=== PATIENT | male | born 1955 | race Hispanic/Latino ===

== ENCOUNTER 2021-06-08 06:47 | Emergency (ER) | payer SELFPAY ==
[2021-06-08] MEDS ORDERED: MECLIZINE HCL 12.5 MG TAB ONE (07:20)
[2021-06-08 07:30] LABS: Absolute Lymphocytes (CBC) 1.3 K/uL (0.7-4.9); Hematocrit 36.1 % (39.6-49.0); Lymphocytes % 19.3 % (15.3-44.8); MPV 6.6 fL (7.6-11.3)
[2021-06-08 07:31] LABS: Protime INR 1.22
--- NOTE | 2021-06-08 07:50 | RAD REPORT ---
EXAM DESCRIPTION: CT - Ct Stroke Brain Wo Cont - 06/08/2021 7:37 am CLINICAL HISTORY: DIZZINESS COMPARISON: Head angio dated 06/08/2021 TECHNIQUE: Axial 5 millimeter thick images of the head were obtained without IV contrast. All CT scans are performed using dose optimization technique as appropriate and may include automated exposure control or mA/KV adjustment according to patient size. FINDINGS: No intracranial hemorrhage, mass, or cerebral edema. No acute infarctions seen at the myles ical level. No cortical edema or sulcal effacement. Mild underlying atrophy changes are present. Vent ricles are in proportion to any volume loss. Arterial and physiologic calcifications are present. Chr onic ischemic changes minimal. There is focal diminished attenuation in the right cerebellum likely f rom old CVA. No extra-axial fluid collections. Holley matter-white matter differentiation is preserved . Visualized portions of the mastoid air cells, paranasal sinuses, and orbits are unremarkable. Findings telephoned to Jimbo at 7:44 a.m. IMPRESSION: No CT evidence of acute intracranial process. Mild atrophy changes are present. Chronic ischemic changes minimal. 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
--- NOTE | 2021-06-08 07:56 | RAD REPORT ---
EXAM DESCRIPTION: CT - Neck Angio - 06/08/2021 7:37 am CLINICAL HISTORY: dizziness, stroke-like symptoms TECHNIQUE: During dynamic enhancement using nonionic IV contrast, axial 2 mm thick images of the nec k were obtained. Sagittal and axial reconstruction images were generated using MIP technique and revi ewed. All CT scans are performed using dose optimization technique as appropriate and may include automated exposure control or mA/KV adjustment according to patient size. COMPARISON: CT head same date FINDINGS: No aneurysm or vascular malformation identified. No carotid dissection. No right vertebra l artery dissection. No aortic arch or great vessel origin abnormality seen. No origin stenosis or significant atheroscler otic changes of the right vertebral artery. The left vertebral artery is very small in size along its entire course with segments near the origin and the C1-2 region showing no defined flow on CT imagin g. The distal-most vertebral artery has identifiable flow. No stenosis, vasculitis or other significa nt carotid artery finding. No basilar artery abnormality. Imaging in each lung apex shows lung parenchymal scarring, nodularity and calcifications probably all chronic disease but not fully evaluated on this study. IMPRESSION: Very small irregular contour to the left vertebral artery without commensurate enlargem ent of the right vertebral artery (right vertebral artery dominant variant). Atherosclerotic disease or dissection of the left vertebral artery cannot be excluded. Age of any pos sible dissection cannot be established. Correlation is needed with any symptoms that may indicate the left vertebral artery changes are acute /subacute.
--- NOTE | 2021-06-08 08:00 | RAD REPORT ---
EXAM DESCRIPTION: CT - Head angio - 06/08/2021 7:37 am CLINICAL HISTORY: DIZZINESS, stroke-like symptoms TECHNIQUE: During dynamic enhancement using nonionic IV contrast, axial 1 millimeter thick images of the head were obtained. Sagittal and axial reconstruction images were generated using MIP technique and reviewed. All CT scans are performed using dose optimization technique as appropriate and may include automated exposure control or mA/KV adjustment according to patient size. COMPARISON: CT head same date, CT angio neck same date FINDINGS: No aneurysm or vascular malformation identified. Major venous sinuses are patent. No named branch occlusion or vasculitis findings. Significant atherosclerotic calcifications are pres ent in the vertical petrous and cavernous portions of each internal carotid artery. Approximately 50% stenosis present in the cavernous portion of the right internal carotid artery. Left cavernous carot id atherosclerotic changes do not appear to cause greater than 50% stenosis. Anterior communicating artery and right posterior communicating artery are present. The anterior, mid dle and posterior cerebral arteries do not show significant atherosclerotic disease. Basilar artery narrowing near the origin does not cause greater than 50% narrowing. Distal most right vertebral artery is unremarkable. Left vertebral artery is much smaller. Left vertebral artery is fu rther detailed on the CT angio neck examination. IMPRESSION: Distal internal carotid artery atherosclerotic calcifications are present with 50% sten osis in the right cavernous internal carotid artery. No named branch occlusion or vasculitis findings. No significant atherosclerotic changes in the anter ior, middle and posterior cerebral artery circulations. Mild narrowing of the basilar artery origin. Distal left vertebral artery is very small. The left lora tebral artery is further detailed on the CT angio neck examination.
[2021-06-08 08:03] LABS: BUN Blood Urea Nitrogen 12 mg/dL (7-18); Bicarbonate 24 mmol/L (21-32); Glucose Level 135 mg/dL (74-106); Potassium 3.5 mmol/L (3.5-5.1); Sodium Level 136 mmol/L (136-145)
--- NOTE | 2021-06-08 08:37 | ER ---
Nurse's Notes [facility] Name: Rogerio Kate Age: 66 yrs Sex: Male : 1955 Arrival Date: 06/08/2021 Time: 06:49 Bed 6 Private MD: Diagnosis: Other peripheral vertigo Presentation: 06/08 06:49 Chief complaint: EMS states: the patient was last know well at 12 Noon yesterday st1 06/07/2021. A little after noon the patient developed left sided facial droop, dizziness, slurred speech and generalized weakness all over. Throughout the night the patient began to feel more weak and called 911. Coronavirus screen: Vaccine status: Patient reports receiving the 1st dose of the Covid vaccine. Ayo and Ayo. Ebola Screen: No symptoms or risks identified at this time. Initial Sepsis Screen: Does the patient meet any 2 criteria? No. Patient's initial sepsis screen is negative. Does the patient have a suspected source of infection? No. Patient's initial sepsis screen is negative. Risk Assessment: Do you want to hurt yourself or someone else? Patient reports no desire to harm self or others. Onset of symptoms was June 07, 2021. 06:49 Method Of Arrival: EMS: [facility] st1 06:49 Acuity: ODALIS 2 st1 Triage Assessment: 06:53 General: Appears in no apparent distress. comfortable, obese, well groomed, well st1 developed, Behavior is calm, cooperative. Pain: Denies pain. Historical: - Allergies: 06:53 No Known Allergies; st1 - PMHx: 06:53 Cerebrovascular accident; Hypertensive disorder; st1 - Immunization history:: Adult Immunizations up to date, Pneumococcal vaccine is up to date, Flu vaccine is up to date. - Social history:: Smoking status: Patient denies any tobacco usage or history of. Patient/guardian denies using alcohol, street drugs, IV drugs, tobacco products. Screenin:58 Abuse screen: Denies threats or abuse. Nutritional screening: No deficits noted. st1 Tuberculosis screening: No symptoms or risk factors identified. Fall Risk None identified. No fall in past 12 months (0 pts). Secondary diagnosis (15 points) CVA, IV access (20 points). Ambulatory Aid- None/Bed Rest/Nurse Assist (0 pts). Gait- Weak (10 pts.). Mental Status- Oriented to own ability (0 pts). Total [place] Fall Scale indicates High Risk Score (45 or more points). Fall prevention measures have been instituted. Side Rails Up X 2 Frequent Obs/Assessments Occuring Family Present and informed to notify staff if the need to leave the bedside As available patient and family educated on Fall Prevention Program and Strategies. Assessment: 06:57 Reassessment: please see triage assessment. Neuro: No deficits noted. Cardiovascular: st1 No deficits noted. Respiratory: No deficits noted. GI: No deficits noted. : No deficits noted. Musculoskeletal: Reports weakness in generalized weakness. 07:45 General: Appears in no apparent distress. l facial droop noted, speech is clear and jh6 daughters are at bedside. Pt reports that he has dizziness when turning head but not when laying still. . 08:09 Reassessment: No changes from previously documented assessment. jg9 08:34 Reassessment: Patient states symptoms have improved. Patient reports improvement in the jg9 dizziness, he stated that before he could not look to the left without feeling dizzy and now he is able to to. . Vital Signs: 06:49 BP 144 / 80; Pulse 107; Resp 18; Temp 98.1; Pulse Ox 95% on R/A; Weight 81.65 kg; st1 Height 6 ft. 1 in. (185.42 cm); Pain 0/10; 07:15 BP 131 / 76; Pulse 99; Resp 22; Pulse Ox 99% ; jg9 07:47 BP 142 / 83; Pulse 103; Resp 18; Pulse Ox 100% ; Pain 0/10; jh6 08:00 BP 143 / 87; Pulse 100; Resp 17 S; Pulse Ox 100% on R/A; Pain 0/10; jg9 08:36 BP 143 / 83; Pulse 104; Resp 21 S; Pulse Ox 100% on R/A; Pain 0/10; jg9 06:49 Body Mass Index 23.75 (81.65 kg, 185.42 cm) st1 NIH Stroke Scale Scores: 07:02 NIHSS Score: 2 [facility] ED Course: 06:49 Patient arrived in ED. as6 06:51 Jimbo Leonard PA is PHCP. [facility] 06:51 Anand Zapata MD is Attending Physician. jm 06:53 Triage completed. st1 06:53 Arm band placed on right wrist. st1 06:58 Allergy band placed. Placed in gown. Bed in low position. Call light in reach. Side st1 rails up X2. monitor technician on. Pulse ox on. NIBP on. Door closed. Warm blanket given. Head of bed elevated. 07:15 Lena Rey, RN is Primary Nurse. jg9 07:27 Inserted saline lock: 20 gauge in right antecubital area, using aseptic technique. jh6 07:37 CT Stroke Brain w/o Contrast In Process Unspecified. EDMS 07:37 CT Head Angio In Process Unspecified. EDMS 07:37 CT Neck Angio In Process Unspecified. EDMS 07:[address]. jh6 08:02 XRAY Chest (1 view) In Process Unspecified. EDMS 08:33 No apparent distress. Resting quietly. Awaiting lab results, Awaiting radiology jg9 results. Awaiting disposition. 08:37 No provider procedures requiring assistance completed. jg9 08:58 IV discontinued. jg9 Administered Medications: 07:20 Drug: Meclizine 50 mg Route: PO; jh6 08:34 Follow up: Response: No adverse reaction; Marked relief of symptoms jg9 Outcome: 08:35 Discharge ordered by . jmm 08:37 Condition: stable jg9 08:58 Discharged to home via wheelchair. jg9 08:58 Discharge instructions given to patient, family, Instructed on discharge instructions, follow up and referral plans. Demonstrated understanding of instructions, follow-up care, medications, Prescriptions given X 1. 08:58 Patient left the ED. jg9 NIH Stroke Scale - NIH Stroke Score Date: 06/08/2021 Time: 07:02 Total Score = 2 1a. Level of Consciousness (LOC) - 0(Alert) 1b. Level of Consciousness (LOC) (Month \T\ Age) - 0(Both) 1c. LOC Commands (Open \T\ Closes Eyes/Emr Trainer) - 0(Both) 2. Best Gaze (Lateral Gaze Paresis) - 0(Normal) 3. Visual Field Loss - 0(No visual loss) 4. Facial Palsy - 2(Partial paralysis) 5a. Left Arm: Motor (10-second hold) - 0(No drift) 5b. Right Arm: Motor (10-second hold) - 0(No drift) 6a. Left Leg: Motor (5-second hold - always test supine) - 0(No drift) 6b. Right Leg: Motor (5-second hold - always test supine) - 0(No drift) 7. Limb Ataxia (finger/nose \T\ heel/guadarrama - test with eyes open) - 0(Absent) 8. Sensory Loss (pinprick arms/legs/face) - 0(Normal) 9. Best Language: Aphasia (description/naming/reading) - 0(No aphasia) 10. Dysarthria (speech clarity - read or repeat words) - 0(Normal) 11. Extinction and Inattention (visual/tactile/auditory/spatial/personal) - 0(No abnormality) Initials: leslie Signatures: Dispatcher [employer] EDMS Jimbo Leonard PA PA jmm Slawson, Ashby, RN RN as6 Lena Clemens RN RN jh6 Lena Rey, RN RN jg9 Nancy Shin RN RN st1 Corrections: (The following items were deleted from the chart) 07:00 06:49 Chief complaint: EMS states: the patient was last know well at 12 No[address] st1 yesterday 06/07/2021. A little after noon the patient developed facial droop, dizziness, slurred speech and generalized weakness all over. Throughout the night the patient began to feel more weak and called 911. st1
--- NOTE | 2021-06-08 08:37 | EDPHYS ---
Physician Documentation [facility] Name: Rogerio Kate Age: 66 yrs Sex: Male : 1955 Arrival Date: 06/08/2021 Time: 06:49 Bed 6 Private MD: OBEY Physician Anand Zapata HPI: 06/08 07:02 This 66 yrs old Male presents to ER via EMS with complaints of Dizziness. [facility] 07:02 This is a 66-year-old male with history of hypertension and recent CVA the presents jmm emerged part with complaints of acute onset dizziness. Patient states that when he awoke this morning around 1 AM he became very dizzy, in particular when he looks towards his left. Patient describes the dizziness as a sense of movement. Patient states this made it difficult for him to walk. Family stated that they noticed some drooling from the left side of the patient's mouth around noon the previous day, which quickly resolved. Patient states that his left-sided facial droop has been with him for a long time, but did not could not indicate the exact timing. Family stated that the patient was treated for a CVA approximately 1 month ago and given TPA and treated at [facility]. Patient currently denies any type of unilateral weakness, decreased sensation, difficulty with his vision.. Historical: - Allergies: 06:53 No Known Allergies; st1 - PMHx: 06:53 Cerebrovascular accident; Hypertensive disorder; st1 - Immunization history:: Adult Immunizations up to date, Pneumococcal vaccine is up to date, Flu vaccine is up to date. - Social history:: Smoking status: Patient denies any tobacco usage or history of. Patient/guardian denies using alcohol, street drugs, IV drugs, tobacco products. ROS: 07:02 Constitutional: Negative for fever, chills, and weight loss, Cardiovascular: Negative [facility] for chest pain, palpitations, and edema, Respiratory: Negative for shortness of breath, cough, wheezing, and pleuritic chest pain. 07:02 Neuro: Positive for dizziness. 07:02 All other systems are negative. Exam: 07:02 ENT: Moist Mucus Membranes Neck: Trachea midline, Supple Chest/axilla: Normal chest [facility] wall appearance and motion. Cardiovascular: Regular rate and rhythm. No edema appreciated Respiratory: Normal respirations, no respiratory distress appreciated Abdomen/GI: Non distended, soft Back: Normal ROM Skin: General appearance color normal MS/ Extremity: Moves all extremities, no obvious deformities appreciated, no edema noted to the lower extremities 07:02 Constitutional: This is a well developed, well nourished patient who is awake, alert, and in no acute distress. 07:02 Head/face: Left-sided facial droop, eyebrows spared. 07:02 Eyes: Extraocular movements: intact throughout. 07:02 Neuro: Orientation: is normal, Mentation: is normal, Memory: is normal. 07:02 Psych: Behavior/mood is pleasant, cooperative. Vital Signs: 06:49 BP 144 / 80; Pulse 107; Resp 18; Temp 98.1; Pulse Ox 95% on R/A; Weight 81.65 kg; st1 Height 6 ft. 1 in. (185.42 cm); Pain 0/10; 07:15 BP 131 / 76; Pulse 99; Resp 22; Pulse Ox 99% ; jg9 07:47 BP 142 / 83; Pulse 103; Resp 18; Pulse Ox 100% ; Pain 0/10; jh6 08:00 BP 143 / 87; Pulse 100; Resp 17 S; Pulse Ox 100% on R/A; Pain 0/10; jg9 08:36 BP 143 / 83; Pulse 104; Resp 21 S; Pulse Ox 100% on R/A; Pain 0/10; jg9 06:49 Body Mass Index 23.75 (81.65 kg, 185.42 cm) st1 NIH Stroke Scale Scores: 07:02 NIHSS Score: 2 leslie MDM: 07:02 Patient medically screened. [facility] 08:35 Data reviewed: vital signs, nurses notes. Counseling: I had a detailed discussion with leslie the patient and/or guardian regarding: the historical points, exam findings, and any diagnostic results supporting the discharge/admit diagnosis, lab results, radiology results, the need for outpatient follow up, to return to the emergency department if symptoms worsen or persist or if there are any questions or concerns that arise at home. 08:35 ED course: Patient's dizziness has resolved after administration of meclizine. Patient leslie states he feels much better, when turning his head to the left does not feel a sense of dizziness anymore. I discussed CT findings with Dr. Taylor whom recommended outpatient follow-up, more likely a peripheral versus central. Patient does still have the left-sided facial droop, which she states is an older deficit. I discussed options with the family who would prefer not to be admitted to the hospital and will follow up with their own neurologist this for reevaluation. Family otherwise given strict return precautions. Family understood and agrees plan of care.. 06/08 07:05 Order name: Basic Metabolic Panel; Complete Time: 08:03 [facility] 06/08 07:05 Order name: CBC with Diff; Complete Time: 07:44 [facility] 06/08 07:05 Order name: PT-INR; Complete Time: 07:44 [facility] 06/08 07:05 Order name: Troponin HS; Complete Time: 08:03 [facility] 06/08 07:05 Order name: XRAY Chest (1 view); Complete Time: 08:45 [facility] 06/08 07:05 Order name: CT Stroke Brain w/o Contrast; Complete Time: 07:55 [facility] 06/08 07:05 Order name: EKG; Complete Time: 07:06 [facility] 06/08 07:05 Order name: Cardiac monitoring; Complete Time: 07:15 [facility] 06/08 07:05 Order name: EKG - Nurse/Tech; Complete Time: 07:15 [facility] 06/08 07:05 Order name: IV Saline Lock; Complete Time: 08:33 [facility] 06/08 07:05 Order name: Labs collected and sent; Complete Time: 08:33 [facility] 06/08 07:05 Order name: CT Head Angio; Complete Time: 08:03 [facility] 06/08 07:07 Order name: CT Neck Angio; Complete Time: 08:03 [facility] 06/08 07:05 Order name: O2 Sat Monitoring; Complete Time: 07:16 [facility] Administered Medications: 07:20 Drug: Meclizine 50 mg Route: PO; 6 08:34 Follow up: Response: No adverse reaction; Marked relief of symptoms jg9 Disposition: 06/09 07:07 Co-signature as Attending Physician, Anand Zapata MD I agree with the assessment and tamara plan of care. Disposition Summary: 06/08/21 08:35 Discharge Ordered Location: Home [facility] Condition: Stable [facility] Diagnosis - Other peripheral vertigo [facility] Followup: [facility] - With: Private Physician - When: 2 - 3 days - Reason: Recheck today's complaints, Continuance of care, Re-evaluation by your physician Discharge Instructions: - Discharge Summary Sheet [facility] - Vertigo [facility] - How to Perform the Homer Maneuver [facility] Forms: - Medication Reconciliation Form [facility] - Thank You Letter [facility] - Antibiotic Education [facility] - Prescription Opioid Use [facility] Prescriptions: - Meclizine 25 mg Oral Tablet - take 1 tablet by ORAL route every 8 hours As needed; 30 tablet; Refills: 0, [facility] Product Selection Permitted NIH Stroke Scale - NIH Stroke Score Date: 06/08/2021 Time: 07:02 Total Score = 2 1a. Level of Consciousness (LOC) - 0(Alert) 1b. Level of Consciousness (LOC) (Month \T\ Age) - 0(Both) 1c. LOC Commands (Open \T\ Closes Eyes/Staff Nuclear Weapons Officer) - 0(Both) 2. Best Gaze (Lateral Gaze Paresis) - 0(Normal) 3. Visual Field Loss - 0(No visual loss) 4. Facial Palsy - 2(Partial paralysis) 5a. Left Arm: Motor (10-second hold) - 0(No drift) 5b. Right Arm: Motor (10-second hold) - 0(No drift) 6a. Left Leg: Motor (5-second hold - always test supine) - 0(No drift) 6b. Right Leg: Motor (5-second hold - always test supine) - 0(No drift) 7. Limb Ataxia (finger/nose \T\ heel/guadarrama - test with eyes open) - 0(Absent) 8. Sensory Loss (pinprick arms/legs/face) - 0(Normal) 9. Best Language: Aphasia (description/naming/reading) - 0(No aphasia) 10. Dysarthria (speech clarity - read or repeat words) - 0(Normal) 11. Extinction and Inattention (visual/tactile/auditory/spatial/personal) - 0(No abnormality) Initials: [facility] Signatures: Dispatcher [employer] EDAnand Adam MD MD cha Mickail, Joel, PA PA Benjamín Kaplan MD MD rn Hastedt, Jennifer, RN RN jh6 Nancy Shin RN RN st1 Lena Rey RN jg9 Corrections: (The following items were deleted from the chart) 03/22 09:14 09:07 This is a 66-year-old male with history of hypertension and recent CVA [facility] the presents emerged part with complaints of acute onset dizziness. Patient states that when he awoke this morning around 1 AM he became very dizzy, in particular when he looks towards his left. Patient describes the dizziness as a sense of movement. Patient states this made it difficult for him to walk. Family stated that they noticed some drooling from the left side of the patient's mouth around noon the previous day, which quickly resolved. Patient states that his left-sided facial droop has been with him for a long time, but did not could not indicate the exact timing. Family stated that the patient was treated for a CVA approximately 1 month ago and given TPA and treated at [facility]. Patient currently denies any type of unilateral weakness, decreased sensation, difficulty with his vision.. [facility] 09:07 Constitutional: Negative for fever, chills, and weight loss, [facility] Cardiovascular: Negative for chest pain, palpitations, and edema, Respiratory: Negative for shortness of breath, cough, wheezing, and pleuritic chest pain, [facility] 09:07 Neuro: Positive for dizziness, [facility] 09:07 All other systems are negative, [facility] :15 09:07 This 66 yrs old Male presents to ER via EMS with complaints of [facility] Dizziness. [facility] 09:07 Constitutional: This is a well developed, well nourished patient who is [facility] awake, alert, and in no acute distress. [facility] 09: Head/face: Left-sided facial droop, eyebrows spared. [facility] 09:07 Eyes: Extraocular movements: intact throughout, [facility] : 09:07 ENT: Moist Mucus Membranes Neck: Trachea midline, Supple Chest/axilla: [facility] Normal chest wall appearance and motion. Cardiovascular: Regular rate and rhythm. No edema appreciated Respiratory: Normal respirations, no respiratory distress appreciated Abdomen/GI: Non distended, soft Back: Normal ROM Skin: General appearance color normal MS/ Extremity: Moves all extremities, no obvious deformities appreciated, no edema noted to the lower extremities [facility] 09:07 Neuro: Orientation: is normal, Mentation: is normal, Memory: is normal, jmm jmm 09:07 Psych: Behavior/mood is pleasant, cooperative, leslie nelson 09:07 NIHSS Score: 2 leslie nelson
--- NOTE | 2021-06-08 08:42 | EKG ---
Test Date: 2021-06-08 Test Time: 06:56:25 [employer] Gr[employer] Rough Grade: MEASUREMENT RESULTS: Intervals: Rate: 106 WV: 168 QRSD: 90 QT: 352 QTc: 467 [place]: P: 47 WV: 168 QRS: 42 T: 17 INTERPRETIVE STATEMENTS: Sinus tachycardia Otherwise normal ECG Compared to ECG 07/20/1995 05:28:00 Sinus rhythm no longer present Electronically Signed On 06-08-21 08:41:57 CDT by Johny Walsh
--- NOTE | 2021-06-08 08:44 | RAD REPORT ---
EXAM DESCRIPTION: RAD - Chest Single View - 06/08/2021 8:02 am CLINICAL HISTORY: weakness COMPARISON: None TECHNIQUE: AP portable chest image was obtained 06/08/2021 8:02 am . FINDINGS: Numerous areas of nodularity and parenchymal stranding are present in each apex with the d egree of density suggesting most or all of these are calcified. These are likely changes of prior inf ection or inflammatory process. An acute upper lung field finding is unlikely. No focal consolidation typical for bacterial pneumonia. Interstitial markings are prominent probably baseline for this sylvia ent. Failure and volume overload are not suspected. Trachea is midline. Heart and vasculature are normal. No measurable pleural effusion and no pneumotho rax. No acute bony abnormality seen. No acute aortic findings suspected. IMPRESSION: No acute cardiopulmonary process suspected. Numerous areas of nodularity and parenchymal stranding in each apex believed to be sequela of prior i nfection or inflammatory process.
[2021-06-08 09:03] VITALS: TEMP 98.1
[2021-06-08 09:06] VITALS: O2SAT 100
[2021-06-08 09:09] VITALS: BP 143/83
== END 2021-06-08 08:58 | disposition home or self-care (01) ==
LOC: ER 06:47
DX: H81.399 Other peripheral vertigo, unspecified ear (principal); Z86.73 Personal history of transient ischemic attack (TIA), and cerebral infarction without residual deficits; I10 Essential (primary) hypertension
CPT/HCPCS: 36415; 70450; 70496; 70498; 71045; 80048; 82565; 84484; 85025; 85610; 93005; 99285; J8597; Q9967

== ENCOUNTER 2022-02-15 06:27 | Emergency (ER) | payer SELFPAY ==
[2022-02-15 07:19] LABS: Absolute Lymphocytes (CBC) 1.5 K/uL (0.7-4.9); Hematocrit 40.7 % (39.6-49.0); Lymphocytes % 29.8 % (15.3-44.8); MCV 98.7 fL (80-100); MPV 6.5 fL (7.6-11.3); RBC Red Blood Cell Count 4.12 M/uL (4.33-5.43)
[2022-02-15 07:26] LABS: Protime INR 1.15
[2022-02-15 07:35] LABS: Albumin 3.2 g/dL (3.4-5.0); Bilirubin Total 0.6 mg/dL (0.2-1.0); Protein, Total 8.6 g/dL (6.4-8.2)
--- NOTE | 2022-02-15 07:44 | EDPHYS ---
Physician Documentation [facility] Name: Rogerio Kate Age: 66 yrs Sex: Male : 1955 Arrival Date: 02/15/2022 Time: 06:33 Bed 6 Private MD: ED Physician Issac Titus HPI: 02/15 06:52 This 66 yrs old Male presents to ER via Unassigned with complaints of Nose rt Bleed, Dizziness. 06:52 The patient presents with a nose bleed. Onset: The symptoms/episode began/occurred 1 rt week(s) ago. Modifying factors: The symptoms are alleviated by nothing. the symptoms are aggravated by nothing. Severity of symptoms: At their worst the symptoms were moderate. Presents to the ED with intermittent epistaxis, about 2-3 times a day for the past week. Patient reportedly has chronic vertigo from her prior stroke, however, now he has some lightheadedness prompting him to come to the ED for further evaluation. He denies any pain to that area. Denies chest pain, shortness of breath. Patient states that also over the past week, he has had a pain to his left elbow radiating to the shoulder, believes that he may have a pinched nerve. He has not called his doctor for the symptoms. He denies anticoagulant use but does take Plavix. Denies other acute complaints at this time, symptoms are moderate in severity, no other aggravating or alleviating factors.. Historical: - Allergies: 06:59 No Known Allergies; pf1 - Home Meds: 06:59 meclizine 25 mg Oral cap 25 mg every 8 hours for vertigo [Active]; atorvastatin 40 mg pf1 oral tab 1 tab once daily [Active]; clopidogrel 75 mg oral tab 1 tab once daily [Active]; - PMHx: 06:59 Cerebrovascular accident; Hypercholesterolemia; vertigo; pf1 - Immunization history:: Adult Immunizations not up to date. - Social history:: Smoking status: Patient denies any tobacco usage or history of. Patient uses alcohol, only on a social basis. - Family history:: not pertinent. ROS: 06:52 Constitutional: Negative for fever, chills, and weight loss, Eyes: Negative for injury, rt pain, redness, and discharge, Cardiovascular: Negative for chest pain, palpitations, and edema, Respiratory: Negative for shortness of breath, cough, wheezing, and pleuritic chest pain, Abdomen/GI: Negative for abdominal pain, nausea, vomiting, diarrhea, and constipation, Back: Negative for injury and pain, Skin: Negative for injury, rash, and discoloration, Neuro: Negative for headache, weakness, numbness, tingling, and seizure, Psych: Negative for depression, anxiety, suicide ideation, homicidal ideation, and hallucinations. 06:52 ENT: Positive for nose bleed, Negative for ear pain. 06:52 MS/extremity: Positive for pain, tenderness, Negative for 06:52 Neuro: Positive for dizziness, Negative for altered mental status. Exam: 06:52 Constitutional: This is a well developed, well nourished patient who is awake, alert, rt and in no acute distress. Head/Face: Normocephalic, atraumatic. Eyes: Pupils equal round and reactive to light, extra-ocular motions intact. Lids and lashes normal. Conjunctiva and sclera are non-icteric and not injected. Cornea within normal limits. Periorbital areas with no swelling, redness, or edema. Neck: Trachea midline, no thyromegaly or masses palpated, and no cervical lymphadenopathy. Supple, full range of motion without nuchal rigidity, or vertebral point tenderness. No Meningismus. Chest/axilla: Normal chest wall appearance and motion. Nontender with no deformity. No lesions are appreciated. Cardiovascular: Regular rate and rhythm with a normal S1 and S2. No gallops, murmurs, or rubs. Normal PMI, no JVD. No pulse deficits. Respiratory: Lungs have equal breath sounds bilaterally, clear to auscultation and percussion. No rales, rhonchi or wheezes noted. No increased work of breathing, no retractions or nasal flaring. Abdomen/GI: Soft, non-tender, with normal bowel sounds. No distension or tympany. No guarding or rebound. No evidence of tenderness throughout. Skin: Warm, dry with normal turgor. Normal color with no rashes, no lesions, and no evidence of cellulitis. Neuro: Awake and alert, GCS 15, oriented to person, place, time, and situation. Cranial nerves II-XII grossly intact. Motor strength 5/5 in all extremities. Sensory grossly intact. Cerebellar exam normal. Normal gait. Psych: Awake, alert, with orientation to person, place and time. Behavior, mood, and affect are within normal limits. 06:52 ENT: dried blood in the right nare, no active bleeding. Vital Signs: 06:47 BP 143 / 94; Pulse 100; Resp 18; Temp 97.8; Pulse Ox 98% ; Weight 90.72 kg; Height 6 pf1 ft. 0 in. (182.88 cm); Pain 6/10; 07:21 BP 145 / 82; Pulse 92; Resp 22; Pulse Ox 99% on R/A; Pain 8/10; mb9 07:45 BP 162 / 92; Pulse 91; Resp 24; Pulse Ox 99% on R/A; Pain 8/10; mb9 06:47 Body Mass Index 27.12 (90.72 kg, 182.88 cm) pf1 MDM: 06:50 Patient medically screened. rt 07:11 Differential diagnosis: spontaneous epistaxis. Data reviewed: vital signs, nurses jr11 notes. ED course: EKG interpretation by me shows NSR 92 intervals normal, nl axis, non specidic TWI III. 07:41 ED course: reassessed patient, still no bleeding, discussed PCP for MRI for L posterior jr11 shoulder pain radiating to L elbow. Pt states its electricity like, posterior aspect and positional. No concern for ACS. Pt also explained how to stop nose bleeds and knows of normal H/H. Pt has a h/o chronic nose bleeds but has been more frequent this week. Pt to f/u ENT for this. . 02/15 06:52 Order name: CBC with Diff; Complete Time: 07:26 rt 02/15 06:52 Order name: CMP; Complete Time: 07:40 rt 02/15 06:52 Order name: PT-INR; Complete Time: 07:40 rt 02/15 06:52 Order name: Ptt, Activated; Complete Time: 07:40 rt 02/15 06:52 Order name: Troponin High Sensitivity; Complete Time: 07:40 rt 02/15 06:52 Order name: EKG; Complete Time: 06:53 rt 02/15 06:52 Order name: EKG - Nurse/Tech; Complete Time: 07:08 rt Administered Medications: No medications were administered Disposition Summary: 02/15/22 07:43 Discharge Ordered Location: Home jr11 Condition: Stable jr11 Diagnosis - Epistaxis jr11 - Dizziness and giddiness jr11 Followup: jr11 - With: Becky Unger MD - When: 1 - 2 days - Reason: Recheck today's complaints Discharge Instructions: - Discharge Summary Sheet jr11 - Nosebleed, Adult jr11 - Dizziness, [id number] jr11 Forms: - Medication Reconciliation Form jr11 - Thank You Letter jr11 - Antibiotic Education jr11 - Prescription Opioid Use jr11 Signatures: Dispatcher [employer] EDMS Issac Titus MD MD jr11 Whitney Faith RN RN mb9 Nate Rivera MD MD rt Shawna foreman RN RN pf1 Corrections: (The following items were deleted from the chart) 07:06 06:59 PMHx: Hypertensive disorder; pf1 pf1
--- NOTE | 2022-02-15 07:44 | ER ---
Nurse's Notes [facility] Name: Rogerio Kate Age: 66 yrs Sex: Male : 1955 Arrival Date: 02/15/2022 Time: 06:33 Bed 6 Private MD: Diagnosis: Epistaxis;Dizziness and giddiness Presentation: 02/15 06:47 Chief complaint: Patient states: Patient C/O intermittent epistaxis with intermittent pf1 left elbow pain that radiates to left neck,onset 1 week and also C/O intermittent mild dizziness,onset last night. Patient stated had 2-3 episodes of nosebleed within the past 24 hours. Patient stated has chronic vertigo since his CVA in April 2021. Coronavirus screen: Vaccine status: Patient reports being unvaccinated. Client denies travel out of the [place] in the last 14 days. At this time, the client does not indicate any symptoms associated with coronavirus-19. Ebola Screen: Patient negative for fever greater than or equal to 101.5 degrees Fahrenheit, and additional compatible Ebola Virus Disease symptoms. Initial Sepsis Screen: Does the patient meet any 2 criteria? No. Patient's initial sepsis screen is negative. Does the patient have a suspected source of infection? No. Patient's initial sepsis screen is negative. Risk Assessment: Do you want to hurt yourself or someone else? Patient reports no desire to harm self or others. Note Maxine (Girlfriend's) contact # [phone]. Onset of symptoms was February 08, 2022. Mechanism of Injury: No Mechanism of Injury. 06:47 Method Of Arrival: Ambulatory pf1 06:47 Acuity: ODALIS 3 pf1 Triage Assessment: 07:06 General: Appears in no apparent distress. comfortable, well groomed, well developed, pf1 Behavior is calm, cooperative, appropriate for age, quiet. Pain: Complains of pain in Patient C/O left elbow pain that radiates to left neck,onset 1 week. Patient denies any injury. Historical: - Allergies: 06:59 No Known Allergies; pf1 - Home Meds: 06:59 meclizine 25 mg Oral cap 25 mg every 8 hours for vertigo [Active]; atorvastatin 40 mg pf1 oral tab 1 tab once daily [Active]; clopidogrel 75 mg oral tab 1 tab once daily [Active]; - PMHx: 06:59 Cerebrovascular accident; Hypercholesterolemia; vertigo; pf1 - Immunization history:: Adult Immunizations not up to date. - Social history:: Smoking status: Patient denies any tobacco usage or history of. Patient uses alcohol, only on a social basis. - Family history:: not pertinent. Screenin:08 Abuse screen: Denies threats or abuse. Denies injuries from another. Nutritional as6 screening: No deficits noted. Tuberculosis screening: No symptoms or risk factors identified. Fall Risk None identified. Assessment: 07:12 Reassessment: Report received from MARCIANO Quiñones. mb9 07:12 General: Appears in no apparent distress. comfortable, Behavior is calm, cooperative, mb9 appropriate for age. Pain: Complains of pain in left arm Pain radiates to neck Pain currently is 8 out of 10 on a pain scale. Quality of pain is described as sharp, shooting, Aggravated by increased activity, repositioning. Neuro: Norton Agitation-Sedation Scale (RASS): 0 - Alert and Calm Level of Consciousness is awake, alert, obeys commands, Oriented to person, place, time, situation, Appropriate for age Reports dizziness. Cardiovascular: Heart tones S1 S2 present Rhythm is regular. Respiratory: Airway is patent Respiratory effort is even, Respiratory pattern is tachypnea Breath sounds are clear bilaterally. GI: Abdomen is flat, Bowel sounds present X 4 quads. Abd is soft and non tender X 4 quads. : Urine is clear. EENT: Nares dried blood noted to right nare. Reports nose bleed intermittently for the past week . Derm: Skin is intact, Skin is dry, Skin is normal. Musculoskeletal: Range of motion: intact in all extremities. 07:44 Reassessment: No changes from previously documented assessment. mb9 Vital Signs: 06:47 BP 143 / 94; Pulse 100; Resp 18; Temp 97.8; Pulse Ox 98% ; Weight 90.72 kg; Height 6 pf1 ft. 0 in. (182.88 cm); Pain 6/10; 07:21 BP 145 / 82; Pulse 92; Resp 22; Pulse Ox 99% on R/A; Pain 8/10; mb9 07:45 BP 162 / 92; Pulse 91; Resp 24; Pulse Ox 99% on R/A; Pain 8/10; mb9 06:47 Body Mass Index 27.12 (90.72 kg, 182.88 cm) pf1 ED Course: 06:33 Patient arrived in ED. ja2 06:43 Nate Rivera MD is Attending Physician. rt 06:59 Triage completed. pf1 07:06 Whitney Faith, RN is Primary Nurse. mb9 07:07 Attending Physician role handed off by Nate Rivera MD jr11 07:07 Issac Titus MD is Attending Physician. jr11 07:08 Arm band placed on. as6 07:08 Inserted saline lock: 20 gauge in left forearm, using aseptic technique. Blood as6 collected. 07:09 Placed in gown. Bed in low position. Call light in reach. Side rails up X2. as6 07:42 Becky Unger MD is Referral Physician. jr11 07:47 No provider procedures requiring assistance completed. IV discontinued, intact, mb9 bleeding controlled, No redness/swelling at site. Pressure dressing applied. Administered Medications: No medications were administered Medication: 07:47 VIS not applicable for this client. mb9 Outcome: 07:43 Discharge ordered by . jr11 07:47 Discharged to home via ambulance. mb9 07:47 Condition: stable 07:47 Discharge instructions given to patient, Instructed on discharge instructions, follow up and referral plans. Demonstrated understanding of instructions, follow-up care. 07:54 Patient left the ED. mb9 Signatures: Purvi Hoff Ashby, RN RN as6 Issac Titus MD MD jr11 Whitney Faith, MARCIANO RN mb9 Nate Rivera MD MD rt Shawna foreman RN RN pf1 Corrections: (The following items were deleted from the chart) 07:06 06:59 PMHx: Hypertensive disorder; pf1 pf1 07:44 07:12 Neuro: Norton Agitation-Sedation Scale (RASS): 0 - Alert and Calm Level of mb9 Consciousness is awake, alert, obeys commands, Oriented to person, place, time, situation, Appropriate for age mb9 07:44 07:12 Neuro: Norton Agitation-Sedation Scale (RASS): 0 - Alert and Calm Level of mb9 Consciousness is awake, alert, obeys commands, Oriented to person, place, time, situation, Appropriate for age Reports lightheaded and dizziness from prior stroke. mb9
[2022-02-15 07:58] VITALS: TEMP 97.8
[2022-02-15 07:59] VITALS: O2SAT 99
[2022-02-15 08:00] VITALS: BP 162/92
--- NOTE | 2022-02-16 16:28 | EKG ---
Test Date: 2022-02-15 Test Time: 07:00:02 Social Service Technician: MEASUREMENT RESULTS: Intervals: Rate: 92 IA: 162 QRSD: 88 QT: 366 QTc: 452 Satin: P: 50 IA: 162 QRS: 59 T: 30 INTERPRETIVE STATEMENTS: Normal sinus rhythm Normal ECG Compared to ECG 06/08/2021 06:56:25 Sinus tachycardia no longer present Electronically Signed On 02-16-22 16:23:18 GALLERY OR MUSEUM TECHNICIAN by Johny Walsh
== END 2022-02-15 07:54 | disposition home or self-care (01) ==
LOC: ER 06:27
DX: R04.0 Epistaxis (principal); R42 Dizziness and giddiness; M25.522 Pain in left elbow
CPT/HCPCS: 36415; 80053; 84484; 85025; 85610; 85730; 93005; 99283

== ENCOUNTER 2023-06-24 13:41 | Emergency (ER) | payer SELFPAY ==
--- OUTSIDE RECORDS SUMMARY | 2023-06-24 13:44 | XMS REPORT | Continuity of Care Document ---
Author Name Unknown Address [address] [place] [address] [address] [id number] [facility] thconnect Address [address] [facility]. [address] [place] [address] Care Team Providers Care Outdoor Illuminating Engineer Name Role Phone Goyo Arceo Primary Care Physician [phone] TANNER SHAW Attending Clinician UnavailALFREDO Spaulding Attending Clinician Unavailable Medications Ordered Medication Name Filled Medication Name Start Date Stop Date Current Medication? Ordering Clinician Indication Dosage Frequency Signature (SIG) Comments Components Source Dose Unknown 09-03 00:00: 00 No Dose Unknown 0 08-26 00:00: 00 No Dose Unknown 0 08-24 00:00: 00 No Dose Unknown 0 08-23 00:00: 00 No Dose Unknown 0 08-23 00:00: 00 No Dose Unknown 0 08-21 00:00: 00 No Dose Unknown 0 08-21 00:00: 00 No clopidogrel 75 mg tablet 08-20 00:00: 00 No 1mg atorvastati n 40 mg tablet 08-20 00:00: 00 No 1mg Vital Signs Vital Name Observation Time Observation Value Comments S ource BP Systolic 2021-09-24 13:08:00 159 mm[Hg] BP Diastolic 2021-09-24 13:08:00 70 mm[Hg] Weight Measured 2021-09-24 13:08:00 202.20 pounds Height Measured 2021-09-24 13:08:00 71.65 inches Body Temperature 2021-09-24 13:08:00 98.10 degrees Heart Rate 2021-09-24 13:08:00 98.00 /min Respiratory Rate 2021-09-24 13:08:00 16.00 /min BP Systolic 2021-08-20 14:08:00 128 mm[Hg] BP Diastolic 2021-08-20 14:08:00 78 mm[Hg] Weight Measured 2021-08-20 14:08:00 196.80 pounds Height Measured 2021-08-20 14:08:00 71.65 inches Body Temperature 2021-08-20 14:08:00 98.40 degrees Heart Rate 2021-08-20 14:08:00 91.00 /min Respiratory Rate 2021-08-20 14:08:00 18.00 /min Plan of Care Planned Activity Planned Date Details Comments Source Goal Plan of Care Note [code = 22016-6] Goal Plan of Care Note [code = 16467-0] Goal Plan of Care Note [code = 82220-1] Goal Plan of Care Note [code = 24012-4] Goal Plan of Care Note [code = 47065-9] Goal Plan of Care Note [code = 53803-9] Goal Plan of Care Note [code = 33200-5] Goal Plan of Care Note [code = 98459-9] Encounters Start Date/Time End Date/Time Encounter Type Admission Type Attending [facility] Care Facility Care Department Encounter ID Source 2021-06-14 01:04:45 Outpatient T[facility] SH[facility] [id number] [facility] 2021-06-11 11:45:42 Outpatient [facility] SH[facility] [id number] [facility] 2021-06-10 15:15:46 Outpatient [facility] SH[facility] [id number] [facility] 2021-05-12 10:18:27 Outpatient CELESTINO ALFREDO [facility] [id number] [facility] 2021-05-07 15:29:33 Outpatient [facility] [id number] [facility] 2022-08-31 14:30:28 2022-08-31 14:30:28 Outpatient [facility] [id number] John Ludwig 2022-05-19 09:21:55 2022-05-19 09:21:55 Outpatient [facility] [id number] John Ludwig 2021-12-23 15:29:31 2021-12-23 15:29:31 Outpatient [facility] [id number] John Ludwig 2021-09-24 00:00:00 2021-09-24 00:00:00 Outpatient Visit [id number] Results Test Description Test Time Test Comments Results Result Co mments Source HEMOGLOBIN [id number] 05:15:38* Test Item Value Reference Range Interpretation Comme nts HEMOGLOBIN A1c (test code = 65102) 5.1 % 4.2-5.6 CBC W/AUTO DIFF WITH [id number] 04:23:45* Test Item Value Reference Range Interpretation Comme nts WBC (test code = 1001) 8.2 K/UL 3.5-11.0 RBC (test code = 1002) 3.88 M/UL 4.50-6.10 L HEMOGLOBIN (test code = 1003) 13.1 G/DL 13.5-17.0 L HEMATOCRIT (test code = 1004) 36.4 % 40.0-51.0 L MCV (test code = 1005) 93.8 fL 80.0-99.0 MCH (test code = 1006) 33.8 PG 25.0-33.0 H MCHC (test code = 1007) 36.0 G/DL 31.0-36.0 RDW (test code = 1038) 12.9 % 11.5-15.0 NEUTROPHILS (test code = 1008) 54.4 % LYMPHOCYTES (test code = 1010) 26.9 % MONOCYTES (test code = 1011) 14.1 % EOSINOPHILS (test code = 1012) 3.6 % BASOPHILS (test code = 1013) 0.6 % IMMATURE GRANULOCYTES (test code = 1036) 0.4 % NUCLEATED RBCS (test code = 1065) 0.0 /100 WBC'S See_Comment [Automated [employer]TV[employer] ge] The system which generated this result transmitted reference range: 0.0. The reference range was not used to interpret this result as normal/abnormal. PLATELET COUNT (test code = 1015) 125 K/UL 130-400 L ABSOLUTE NEUTROPHILS (test code = 1066) 4.48 K/UL 1.50-7.50 ABSOLUTE LYMPHOCYTES (test code = 1067) 2.22 K/UL 1.00-4.00 ABSOLUTE MONOCYTES (test code = 1068) 1.16 K/UL 0.20-1.00 H ABSOLUTE EOSINOPHILS (test code = 1040) 0.30 K/UL 0.00-0.50 ABSOLUTE BASOPHILS (test code = 1069) 0.05 K/UL 0.00-0.20 ABS IMMATURE GRANULOCYTES (test code = 1020) 0.03 K/UL 0.00-0.10 ABS NUCLEATED RBCS (test code = 10281) 0.00 K/UL 0.00-0.11 COMPREHENSIVE METABOLIC [id number] 04:16:43* Test Item Value Reference Range Interpretation Comme nts GLUCOSE (test code = 221) 94 MG/DL 70-99 BUN (test code = 2207) 15 MG/DL 8-23 CREATININE (test code = 221) 0.83 MG/DL 0.80-1.40 eGFR (2020 CKD-EPI) (test code = 75468) 97 ML/MIN/1.73 >60 CALC BUN/CREAT (test code = 2235) 18 RATIO 6-28 SODIUM (test code = 223) 141 MEQ/L 133-146 POTASSIUM (test code = 2228) 3.8 MEQ/L 3.5-5.4 CHLORIDE (test code = 2215) 105 MEQ/L 95-107 CARBON DIOXIDE (test code = 2206) 24 MEQ/L 19-31 CALCIUM (test code = 2209) 9.3 MG/DL 8.5-10.5 PROTEIN, TOTAL (test code = 222) 8.8 G/DL 6.1-8.3 H ALBUMIN (test code = 2201) 3.9 G/DL 3.5-5.2 CALC GLOBULIN (test code = 2240) 4.9 G/DL 1.9-3.7 H CALC A/G RATIO (test code = 2234) 0.8 RATIO 1.0-2.6 L BILIRUBIN, TOTAL (test code = 2207) 0.9 MG/DL See_Comment [Automated me ssage] The system which generated this result transmitted reference range: <=1.2. The reference range was not used to interpret this result as normal/abnormal. ALKALINE PHOSPHATASE (test code = 2204) 101 U/L 40-123 AST (test code = 2218) 30 U/L 9-50 ALT (test code = 2219) 24 U/L 5-50 LIPID [id number] 04:16:43* Test Item Value Reference Range Interpretation Comme nts CHOLESTEROL (test code = 2210) 100 MG/DL <200 TRIGLYCERIDES (test code = 2232) 70 MG/DL <150 HDL CHOLESTEROL (test code = 2220) 40 MG/DL >39 CALC LDL CHOL (test code = 2237) 45 MG/DL <100 NOTE: CALCULATED LDL IS BASED ON DAT-DAY METHOD WHICHINCLUDES ADJUSTABLE TRIGLYCERIDE:VLDL CHOLESTEROL RATIO.THIS FACTOR VARIES BY MEASURED TRIGLYCERIDE AND NON-HDLCHOLESTEROL CONCENTRATIONS WITH INCREASED CALCULATED LDL SEENIN HIGHER TRIGLYCERIDE OR LOWER NON-HDL SPECIMENS. FOR MOREINFORMATION, SEE CLIENT ANNOUNCEMENT AT [email or web address] RISK RATIO LDL/HDL (test code = 2238) 1.13 RATIO <3.55 CBC W/AUTO [id number] 00:00:00* Test Item Value Reference Range Interpretation Comme nts WBC (test code = 1001) 8.2 K/UL RBC (test code = 1002) 3.88 M/UL HEMOGLOBIN (test code = 1003) 13.1 G/DL HEMATOCRIT (test code = 1004) 36.4 % MCV (test code = 1005) 93.8 fL MCH (test code = 1006) 33.8 PG MCHC (test code = 1007) 36.0 G/DL RDW (test code = 1038) 12.9 % NEUTROPHILS (test code = 1008) 54.4 % LYMPHOCYTES (test code = 1010) 26.9 % MONOCYTES (test code = 1011) 14.1 % EOSINOPHILS (test code = 1012) 3.6 % BASOPHILS (test code = 1013) 0.6 % IMMATURE GRANULOCYTES (test code = 1036) 0.4 % NUCLEATED RBCS (test code = 1065) 0.0 /100WBC'S PLATELET COUNT (test code = 1015) 125 K/UL ABSOLUTE NEUTROPHILS (test c ode = 1066) 4.48 K/UL ABSOLUTE LYMPHOCYTES (test c ode = 1067) 2.22 K/UL ABSOLUTE MONOCYTES (test cod e = 1068) 1.16 K/UL ABSOLUTE EOSINOPHILS (test c ode = 1040) 0.30 K/UL ABSOLUTE BASOPHILS (test cod e = 1069) 0.05 K/UL ABS IMMATURE GRANULOCYTES (t est code = 1020) 0.03 K/UL ABS NUCLEATED RBCS (test cod e = 97389) 0.00 K/UL CBC W/AUTO [id number] 00:00:00* Test Item Value Reference Range Interpretation Comme nts WBC (test code = 1001) 8.2 K/UL RBC (test code = 1002) 3.88 M/UL HEMOGLOBIN (test code = 1003) 13.1 G/DL HEMATOCRIT (test code = 1004) 36.4 % MCV (test code = 1005) 93.8 fL MCH (test code = 1006) 33.8 PG MCHC (test code = 1007) 36.0 G/DL RDW (test code = 1038) 12.9 % NEUTROPHILS (test code = 1008) 54.4 % LYMPHOCYTES (test code = 1010) 26.9 % MONOCYTES (test code = 1011) 14.1 % EOSINOPHILS (test code = 1012) 3.6 % BASOPHILS (test code = 1013) 0.6 % IMMATURE GRANULOCYTES (test code = 1036) 0.4 % NUCLEATED RBCS (test code = 1065) 0.0 /100WBC'S PLATELET COUNT (test code = 1015) 125 K/UL ABSOLUTE NEUTROPHILS (test c ode = 1066) 4.48 K/UL ABSOLUTE LYMPHOCYTES (test c ode = 1067) 2.22 K/UL ABSOLUTE MONOCYTES (test cod e = 1068) 1.16 K/UL ABSOLUTE EOSINOPHILS (test c ode = 1040) 0.30 K/UL ABSOLUTE BASOPHILS (test cod e = 1069) 0.05 K/UL ABS IMMATURE GRANULOCYTES (t est code = 1020) 0.03 K/UL ABS NUCLEATED RBCS (test cod e = 21077) 0.00 K/UL COMPREHENSIVE METABOLIC [id number] 00:00:00* Test Item Value Reference Range Interpretation Comme nts GLUCOSE (test code = 2217) 94 MG/DL BUN (test code = 2208) 15 MG/DL CREATININE (test code = 2214) 0.83 MG/DL eGFR (2020 CKD-EPI) (test co de = 19652) 97 ML/MIN/1.73 CALC BUN/CREAT (test code = 2235) 18 RATIO SODIUM (test code = 2231) 141 MEQ/L POTASSIUM (test code = 2228) 3.8 MEQ/L CHLORIDE (test code = 2215) 105 MEQ/L CARBON DIOXIDE (test code = 2206) 24 MEQ/L CALCIUM (test code = 2209) 9.3 MG/DL PROTEIN, TOTAL (test code = 2229) 8.8 G/DL ALBUMIN (test code = 2201) 3.9 G/DL CALC GLOBULIN (test code = 2240) 4.9 G/DL CALC A/G RATIO (test code = 2234) 0.8 RATIO BILIRUBIN, TOTAL (test code = 2207) 0.9 MG/DL ALKALINE PHOSPHATASE (test code = 2204) 101 U/L AST (test code = 2218) 30 U/L ALT (test code = 2219) 24 U/L LIPID [id number] 00:00:00* Test Item Value Reference Range Interpretation Comme nts CHOLESTEROL (test code = 2210) 100 MG/DL TRIGLYCERIDES (test code = 2232) 70 MG/DL HDL CHOLESTEROL (test code = 2220) 40 MG/DL CALC LDL CHOL (test code = 2237) 45 MG/DL RISK RATIO LDL/HDL (test cod e = 2238) 1.13 RATIO HEMOGLOBIN A1c [ADDED]2021-08-21 00:00:00* Test Item Value Reference Range Interpretation Comme nts HEMOGLOBIN A1c (test code = 83176) 5.1 % HEMOGLOBIN A1c [ADDED]2021-08-21 00:00:00* Test Item Value Reference Range Interpretation Comme nts HEMOGLOBIN A1c (test code = 84991) 5.1 % TSH, THIRD GENERATION [ADDED]2021-08-21 00:00:00* Test Item Value Reference Range Interpretation Comme nts TSH, THIRD GENERATION (test code = 2821) 1.380 UIU/ML TSH, THIRD GENERATION [ADDED]2021-08-21 00:00:00* Test Item Value Reference Range Interpretation Comme nts TSH, THIRD GENERATION (test code = 2821) 1.380 UIU/ML
[2023-06-24] MEDS ORDERED: MORPHINE 4 MG/ML SYR ONE (15:06)
[2023-06-24] MEDS ORDERED: ONDANSETRON 4 MG/2 ML VIAL ONE (15:06)
[2023-06-24] MEDS ORDERED: NA CHLORIDE 0.9% 1,000 ML ONE (15:06)
[2023-06-24 15:08] LABS: Absolute Basophils 0.1 K/uL (0-0.5); Absolute Eosinophils 0.1 K/uL (0-0.5); Absolute Lymphocytes (CBC) 2.1 K/uL (0.7-4.9); Absolute Monocytes 0.9 K/uL (0.1-1.3); Absolute Neutrophil 4.4 K/uL (1.8-8.0); Basophils % 1.5 % (0-1.3); Hematocrit 40.8 % (39.6-49.0); Hemoglobin 14.1 g/dL (13.6-17.9); Lymphocytes % 27.7 % (15.3-44.8); MCH 34.1 pg (27.0-35.0); MCHC 34.5 g/dL (32.0-36.0); MCV 98.9 fL (80-100); MPV 6.2 fL (7.6-11.3); Monocytes % 12.2 % (3.3-12.3); Neutrophils % 57.6 % (41.7-73.7); Platelets 165 thou/uL (152-406); RBC Red Blood Cell Count 4.13 M/uL (4.33-5.43)
[2023-06-24 15:25] LABS: Albumin 3.2 g/dL (3.4-5.0); Albumin/Globulin Ratio 0.6 (1.1-1.8); Anion Gap 9.5 mEq/L (5.0-15.0); Bilirubin Total 0.9 mg/dL (0.2-1.0); Globulin 5.1 g/dL (2.3-3.5); Potassium 3.5 mEq/L (3.5-5.1); Protein, Total 8.3 g/dL (6.4-8.2)
[2023-06-24 15:38] LABS: Sqamous Epithelial None Seen /HPF (None Seen); Urine Bacteria None Seen /HPF (<20); Urine Bilirubin NEGATIVE (Negative); Urine Blood Trace (Negative); Urine Clarity Clear (Clear); Urine Color Light-Yellow (Yellow); Urine Culture Reflex Order NOT NEEDED; Urine Glucose NEGATIVE (Negative); Urine Ketones NEGATIVE (Negative); Urine Microscopic Reflex YN ORDER UMIC; Urine Mucus Slight /HPF (None Seen); Urine Nitrite NEGATIVE (Negative); Urine Protein NEGATIVE (Negative); Urine RBC <5 /HPF (None Seen); Urine Urobilinogen Normal (Normal); Urine WBC <5 /HPF (<5)
--- NOTE | 2023-06-24 15:57 | RAD REPORT ---
EXAM DESCRIPTION: CTChest Abdomen Pelvis W Cont - 06/24/2023 3:39 pm CLINICAL HISTORY: Pain;Trauma COMPARISON: No comparisons TECHNIQUE: CT of the chest, abdomen, and pelvis was performed. All CT scans are performed using dose optimization technique as appropriate and may include automated exposure control or mA/KV adjustment according to patient size. FINDINGS: Thorax: Chest Wall: No abnormal mass Lungs: Bilateral upper lung scarring with multiple calcifications likely reflecting sequela of a zay te granulomatous process. No acute process in the lungs. Small fat containing right posterior diaphra gmatic hernia. Pleura: No effusions or pneumothorax. Deidre/Mediastinum: No lymphadenopathy. Aorta/Pulmonary Arteries: Unremarkable Heart: Normal size. Coronary artery calcifications. Abdomen/Pelvis: Liver: Cirrhotic liver morphology with hepatic steatosis. Too small to characterize subcentimeter belinda er lesions which are probably benign. Biliary: No biliary ductal dilatation. Stomach: No significant focal abnormality. Duodenum: No significant focal abnormality. Pancreas: No significant abnormality. Spleen: Splenomegaly. Adrenal: No suspicious lesions. Kidney/ureter: No hydronephrosis. No renal calculi. Retroperitoneum: No retroperitoneal adenopathy. Vascular: No aneurysm. Atherosclerosis. No aneurysm. Bowel: Diverticulosis, particular at the sigmoid colon. Very mild inflammatory changes are noted at t he mid sigmoid. Normal appendix. No bowel obstruction.. Peritoneum: No ascites or free air. Small fat containing inguinal hernias. Bladder: Grossly unremarkable. Reproductive: No adnexal masses. Bones: Remote right ninth rib fracture. Remote T12 compression deformity. No acute fracture . Other: n/a IMPRESSION: No evidence of significant trauma to the chest, abdomen, or pelvis. Cirrhotic liver morphology. Mild stranding at the mid sigmoid colon could reflect a mild or early colitis/diverticulitis.
--- NOTE | 2023-06-24 17:51 | ER ---
Nurse's Notes [facility] Name: Rogerio Kate Age: 68 yrs Sex: Male : 1955 Arrival Date: 06/24/2023 Time: 13:41 Bed 5 Private MD: Diagnosis: Fall on same level, unspecified;Low back pain;Contusion of back wall of thorax Presentation: 06/23 14:00 Chief complaint: Patient states: Fell yesterday while attempting to get to bedside nj1 commode, states he hit his back on the back of it. CO back pain. 14:00 Coronavirus screen: Vaccine status: Patient reports receiving the 2nd dose of the covid nj1 vaccine. Ebola Screen: Patient denies travel to an Ebola-affected area in the 21 days before illness onset. Initial Sepsis Screen: Does the patient meet any 2 criteria? No. Patient's initial sepsis screen is negative. Does the patient have a suspected source of infection? No. Patient's initial sepsis screen is negative. Risk Assessment: Do you want to hurt yourself or someone else? Patient reports no desire to harm self or others. Onset of symptoms was June 23, 2023. 14:00 Method Of Arrival: Wheelchair nj1 14:00 Acuity: ODALIS 3 nj1 Historical: - Allergies: 14:12 Ibuprofen; nj1 - PMHx: 14:12 Cerebrovascular accident; Hypercholesterolemia; Vertigo; nj1 - Immunization history:: Client reports receiving the 2nd dose of the Covid vaccine. - Infectious Disease History:: Denies. - Social history:: Smoking status: Patient denies any tobacco usage or history of. Screenin:33 [facility] ED Fall Risk Assessment (Adult) History of falling in the last 3 months, iw including since admission Yes- single mechanical fall (1 pt). Abuse screen: Denies threats or abuse. Denies injuries from another. Nutritional screening: No deficits noted. Tuberculosis screening: No symptoms or risk factors identified. Assessment: 14:20 General: Appears in no apparent distress. Behavior is cooperative, anxious. Pain: iw Complains of pain in mid back area and left mid back. 17:32 Reassessment: Patient appears in no apparent distress at this time. Patient and/or iw family updated on plan of care and expected duration. Pain level reassessed. Patient states symptoms have not improved. Vital Signs: 14:00 BP 146 / 90; Pulse 88; Resp 18; Temp 98(TE); Pulse Ox 94% on R/A; Weight 86.18 kg; nj1 Height 6 ft. 1 in. ; Pain 10/10; 17:32 BP 146 / 79; Pulse 108; Resp 18; Temp 98; Pulse Ox 98% on R/A; iw 14:00 Body Mass Index 25.07 (86.18 kg, 185.42 cm) nj1 14:00 Pain Scale: Adult nj NIH Stroke Scale Scores: 17:44 NIHSS Score: 0 [facility] ED Course: 13:42 Patient arrived in ED. rg4 13:42 Anand Zapata MD is Attending Physician. [facility] 14:09 Sasha Mckeon, RN is Primary Nurse. iw 14:12 Triage completed. nj1 14:12 Arm band placed on. nj1 15:00 Pulse ox on. NIBP on. iw 15:00 Initial lab(s) drawn, by il, sent to lab. Inserted saline lock: 20 gauge in right iw antecubital area, using aseptic technique. Blood collected. 15:41 CT Chest, Abdomen, Pelvis - W/Contrast In Process Unspecified. EDMS 17:33 Patient has correct armband on for positive identification. Provided Education on: . iw Administered Medications: 15:14 Drug: NS 0.9% IV 1000 ml IV at 1 bolus Per protocol; 1000 mL bolus Route: IV; Rate: 1 iw bolus; Site: right antecubital; 15:14 Drug: morphine IVP or IV 4 mg IVP once over 4 mins Route: IVP; Infused Over: 4 mins; iw Site: right antecubital; 15:14 Drug: Ondansetron IVP 4 mg IVP once; over 2 minutes Route: IVP; Site: right antecubital;iw Outcome: 17:49 Discharge ordered by . tamara 18:10 Patient left the ED. hb NIH Stroke Scale - NIH Stroke Score Date: 06/24/2023 Time: 17:44 Total Score = 0 10. Dysarthria (speech clarity - read or repeat words) - 0(Normal) 11. Extinction and Inattention (visual/tactile/auditory/spatial/personal) - 0(No abnormality) 1a. Level of Consciousness (LOC) - 0(Alert) 1b. Level of Consciousness (LOC) (Month \T\ Age) - 0(Both) 1c. LOC Commands (Open \T\ Closes Eyes/Professor [employer] Fine [employer]) - 0(Both) 2. Best Gaze (Lateral Gaze Paresis) - 0(Normal) 3. Visual Field Loss - 0(No visual loss) 4. Facial Palsy - 0(Normal) 5a. Left Arm: Motor (10-second hold) - 0(No drift) 5b. Right Arm: Motor (10-second hold) - 0(No drift) 6a. Left Leg: Motor (5-second hold - always test supine) - 0(No drift) 6b. Right Leg: Motor (5-second hold - always test supine) - 0(No drift) 7. Limb Ataxia (finger/nose \T\ heel/guadarrama - test with eyes open) - 0(Absent) 8. Sensory Loss (pinprick arms/legs/face) - 0(Normal) 9. Best Language: Aphasia (description/naming/reading) - 0(No aphasia) Initials: tamara Signatures: Dispatcher [employer] EDAnand Adam MD MD cha Williams, Irene, MARCIANO TARIQ iw Hyacinth Richard RN RN hb Garcia, Rubi rg4 Caroline Ac RN RN nj1 Corrections: (The following items were deleted from the chart) 17:32 16:00 Inserted saline lock: 20 gauge in right antecubital area, using aseptic iw technique. Blood collected. 17:32 16:00 Initial lab(s) drawn, by me, sent to lab. [facility]
--- NOTE | 2023-06-24 17:51 | EDPHYS ---
Physician Documentation [facility] Name: Rogerio Kate Age: 68 yrs Sex: Male : 1955 Arrival Date: 06/24/2023 Time: 13:41 Bed 5 Private MD: ED Physician Anand Zapata HPI: 06/23 17:43 This 68 yrs old Male presents to ER via Wheelchair with complaints of Fall tamara Injury. 17:43 Details of fall: The patient fell from an upright position, while standing. Onset: The tamara symptoms/episode began/occurred just prior to arrival. Associated injuries: The patient sustained upper back injury, injury to the low back. Severity of symptoms: At their worst the symptoms were mild, in the emergency department the symptoms are unchanged. The patient has not experienced similar symptoms in the past. Historical: - Allergies: 14:12 Ibuprofen; nj1 - PMHx: 14:12 Cerebrovascular accident; Hypercholesterolemia; Vertigo; nj1 - Immunization history:: Client reports receiving the 2nd dose of the Covid vaccine. - Infectious Disease History:: Denies. - Social history:: Smoking status: Patient denies any tobacco usage or history of. ROS: 17:44 Constitutional: Negative for fever, chills, and weight loss, Eyes: Negative for injury, tamara pain, redness, and discharge, ENT: Negative for injury, pain, and discharge, Neck: Negative for injury, pain, and swelling, Cardiovascular: Negative for chest pain, palpitations, and edema, Respiratory: Negative for shortness of breath, cough, wheezing, and pleuritic chest pain, Abdomen/GI: Negative for abdominal pain, nausea, vomiting, diarrhea, and constipation, : Negative for injury, bleeding, discharge, and swelling, MS/Extremity: Negative for injury and deformity, Skin: Negative for injury, rash, and discoloration, Neuro: Negative for headache, weakness, numbness, tingling, and seizure, Psych: Negative for depression, anxiety, suicide ideation, homicidal ideation, and hallucinations, Allergy/Immunology: Negative for hives, rash, and allergies, Endocrine: Negative for neck swelling, polydipsia, polyuria, polyphagia, and marked weight changes, Hematologic/Lymphatic: Negative for swollen nodes, abnormal bleeding, and unusual bruising, 17:44 Back: Positive for injury or acute deformity, pain with movement, of the left low back, left mid back, right mid back and right low back, Exam: 17:44 Constitutional: This is a well developed, well nourished patient who is awake, alert, tamara and in no acute distress. Head/Face: Normocephalic, atraumatic. Eyes: Pupils equal round and reactive to light, extra-ocular motions intact. Lids and lashes normal. Conjunctiva and sclera are non-icteric and not injected. Cornea within normal limits. Periorbital areas with no swelling, redness, or edema. ENT: Nares patent. No nasal discharge, no septal abnormalities noted. Tympanic membranes are normal and external auditory canals are clear. Oropharynx with no redness, swelling, or masses, exudates, or evidence of obstruction, uvula midline. Mucous membranes moist. Neck: Trachea midline, no thyromegaly or masses palpated, and no cervical lymphadenopathy. Supple, full range of motion without nuchal rigidity, or vertebral point tenderness. No Meningismus. Chest/axilla: Normal chest wall appearance and motion. Nontender with no deformity. No lesions are appreciated. Cardiovascular: Regular rate and rhythm with a normal S1 and S2. No gallops, murmurs, or rubs. Normal PMI, no JVD. No pulse deficits. Respiratory: Lungs have equal breath sounds bilaterally, clear to auscultation and percussion. No rales, rhonchi or wheezes noted. No increased work of breathing, no retractions or nasal flaring. Abdomen/GI: Soft, non-tender, with normal bowel sounds. No distension or tympany. No guarding or rebound. No evidence of tenderness throughout. Male : Normal genitalia with no discharge or lesions. Skin: Warm, dry with normal turgor. Normal color with no rashes, no lesions, and no evidence of cellulitis. MS/ Extremity: Pulses equal, no cyanosis. Neurovascular intact. Full, normal range of motion. Neuro: Awake and alert, GCS 15, oriented to person, place, time, and situation. Cranial nerves II-XII grossly intact. Motor strength 5/5 in all extremities. Sensory grossly intact. Cerebellar exam normal. Normal gait. Psych: Awake, alert, with orientation to person, place and time. Behavior, mood, and affect are within normal limits. 17:44 Back: pain, that is mild, ROM is painful, with all movement, normal spinal alignment noted, CVA tenderness, is absent, vertebral tenderness, is not appreciated, muscle spasm, is appreciated in the left low back, left mid back, right mid back and right low back, Vital Signs: 14:00 BP 146 / 90; Pulse 88; Resp 18; Temp 98(TE); Pulse Ox 94% on R/A; Weight 86.18 kg; nj1 Height 6 ft. 1 in. ; Pain 10/10; 17:32 BP 146 / 79; Pulse 108; Resp 18; Temp 98; Pulse Ox 98% on R/A; iw 14:00 Body Mass Index 25.07 (86.18 kg, 185.42 cm) nj1 14:00 Pain Scale: Adult nj1 NIH Stroke Scale Scores: 17:44 NIHSS Score: 0 tamara MDM: 13:42 Patient medically screened. tamara 17:46 Differential diagnosis: chronic back pain, Fatigue Fracture Joint Injury Metastatic tamara Disease Neoplasm Obesity Osteoporosis Renal Infarction ruptured disc, sprain, Ureterolithiasis vertebral fracture. Differential diagnosis: abrasion, contusion, sprain, strain. Data reviewed: vital signs, nurses notes, lab test result(s), radiologic studies. Consideration of Admission/Observation Escalation of care including admission/observation considered. I considered the following discharge prescriptions or medication management in the emergency department Medications were administered in the Emergency Department. See MAR. Independent interpretation of the following test(s) in the Emergency Department CT Scan: My interpretation is CT C/A/P NEG. Care significantly affected by the following chronic conditions: Hypertension, VERTIGO, CVA. 06/23 14:40 Order name: CBC with Diff; Complete Time: 16:53 [facility] 06/23 14:40 Order name: Comprehensive Metabolic Panel; Complete Time: 16:53 [facility] 06/23 14:40 Order name: Urinalysis w/ reflexes; Complete Time: 16:53 [facility] 06/23 14:41 Order name: CT Chest, Abdomen, Pelvis - W/Contrast; Complete Time: 16:53 [facility] Administered Medications: 15:14 Drug: NS 0.9% IV 1000 ml IV at 1 bolus Per protocol; 1000 mL bolus Route: IV; Rate: 1 iw bolus; Site: right antecubital; 15:14 Drug: morphine IVP or IV 4 mg IVP once over 4 mins Route: IVP; Infused Over: 4 mins; iw Site: right antecubital; 15:14 Drug: Ondansetron IVP 4 mg IVP once; over 2 minutes Route: IVP; Site: right antecubital;iw Disposition Summary: 06/24/23 17:49 Discharge Ordered Notes: Location: Home tamara Problem: new tamara Symptoms: have improved tamara Condition: Stable tamara Diagnosis - Fall on same level, unspecified tamara - Low back pain tamara - Contusion of back wall of thorax tamara Followup: tamara - With: Private Physician - When: 2 - 3 days - Reason: Recheck today's complaints, Continuance of care, Re-evaluation by your physician Discharge Instructions: - Discharge Summary Sheet tamara - Acute Back Pain, Adult tamara - Fall Prevention in the Home, Adult tamara - Musculoskeletal Pain tamara - Fall Prevention in Hospitals, Adult [facility] Forms: - Medication Reconciliation Form [facility] - Thank You Letter [facility] - Antibiotic Education tamara - Prescription Opioid Use tamara - Patient Portal Instructions [facility] - Leadership Thank You Letter [facility] Prescriptions: - Tylenol 325 mg Oral tablet - take 2 tablets ORAL route every 6 hours as needed; 50 tablet; Refills: 0, [facility] Product Selection Permitted NIH Stroke Scale - NIH Stroke Score Date: 06/24/2023 Time: 17:44 Total Score = 0 10. Dysarthria (speech clarity - read or repeat words) - 0(Normal) 11. Extinction and Inattention (visual/tactile/auditory/spatial/personal) - 0(No abnormality) 1a. Level of Consciousness (LOC) - 0(Alert) 1b. Level of Consciousness (LOC) (Month \T\ Age) - 0(Both) 1c. LOC Commands (Open \T\ Closes Eyes/Lead Material Handler) - 0(Both) 2. Best Gaze (Lateral Gaze Paresis) - 0(Normal) 3. Visual Field Loss - 0(No visual loss) 4. Facial Palsy - 0(Normal) 5a. Left Arm: Motor (10-second hold) - 0(No drift) 5b. Right Arm: Motor (10-second hold) - 0(No drift) 6a. Left Leg: Motor (5-second hold - always test supine) - 0(No drift) 6b. Right Leg: Motor (5-second hold - always test supine) - 0(No drift) 7. Limb Ataxia (finger/nose \T\ heel/guadarrama - test with eyes open) - 0(Absent) 8. Sensory Loss (pinprick arms/legs/face) - 0(Normal) 9. Best Language: Aphasia (description/naming/reading) - 0(No aphasia) Initials: tamara Signatures: Dispatcher [employer] Anand Bruno, Sasha Chaney MD, cha, RN MARCIANO iw Caroline Ac RN RN nj1
[2023-06-25 01:29] VITALS: BP 146/79; TEMP 98; O2SAT 98
== END 2023-06-24 18:10 | disposition home or self-care (01) ==
LOC: ER 13:41
DX: S20.223A Contusion of bilateral back wall of thorax, initial encounter (principal); W18.30XA Fall on same level, unspecified, initial encounter
CPT/HCPCS: 36415; 71260; 74177; 80053; 81001; 85025; 96374; 96375; 99284; J2405; J7030; Q9967

== ENCOUNTER 2023-11-01 16:57 | Emergency (ER) | payer SELFPAY ==
[2023-11-01] MEDS ORDERED: ONDANSETRON 4 MG/2 ML VIAL ONE (17:11)
[2023-11-01] MEDS ORDERED: FOLIC ACID 5 MG/ML VIAL ONE (17:12)
[2023-11-01] MEDS ORDERED: NA CHLORIDE 0.9% 500 ML ONE (17:12)
[2023-11-01] MEDS ORDERED: NA CHLORIDE 0.9% 1,000 ML ONE (17:12)
[2023-11-01 17:36] LABS: Absolute Basophils 0.1 K/uL (0-0.5); Absolute Eosinophils 0.2 K/uL (0-0.5); Absolute Lymphocytes (CBC) 1.9 K/uL (0.7-4.9); Absolute Monocytes 0.7 K/uL (0.1-1.3); Basophils % 1.2 % (0-1.3); Eosinophils % 3.3 % (0-4.4); Hematocrit 39.1 % (39.6-49.0); Hemoglobin 13.2 g/dL (13.6-17.9); Lymphocytes % 32.5 % (15.3-44.8); MCH 33.7 pg (27.0-35.0); MCHC 33.8 g/dL (32.0-36.0); MCV 99.7 fL (80-100); MPV 6.3 fL (7.6-11.3); Monocytes % 12.1 % (3.3-12.3); Neutrophils % 50.9 % (41.7-73.7); Nucleated Red Blood Cells % 0.2 % (0-0); Platelets 157 thou/uL (152-406); RBC Red Blood Cell Count 3.92 M/uL (4.33-5.43); Red Cell Distribution Width 12.9 % (12.1-15.2)
[2023-11-01 17:38] LABS: PT Prothrombin Time 11.4 SECONDS (9.4-12.5); Protime INR 1.02
--- NOTE | 2023-11-01 18:07 | RAD REPORT ---
EXAM DESCRIPTION: Lexi Single View11/01/2023 5:43 pm CLINICAL HISTORY: cough COMPARISON: June 2023 FINDINGS: Bilateral pulmonary opacities most which are calcified without significant change Lungs appear clear of acute infiltrate Heart is mildly enlarged IMPRESSION: No acute abnormalities displayed
[2023-11-01 18:09] LABS: Albumin 3.2 g/dL (3.4-5.0); Albumin/Globulin Ratio 0.6 (1.1-1.8); Anion Gap 14.5 mEq/L (5.0-15.0); Bilirubin Direct 0.3 mg/dL (0-0.2); Bilirubin Indirect, Calculated 0.5 mg/dL (0.2-0.8); Bilirubin Total 0.8 mg/dL (0.2-1.0); Magnesium 2.3 mg/dL (1.6-2.4); Potassium 3.5 mEq/L (3.5-5.1); Protein, Total 8.2 g/dL (6.4-8.2); Troponin High Sensitivity 10.2 pg/mL (<58.9)
--- NOTE | 2023-11-01 18:51 | RAD REPORT ---
EXAM DESCRIPTION: CT - Head Brain Wo Cont - 11/01/2023 6:36 pm CLINICAL HISTORY: CVA/vertigo COMPARISON: 2021 TECHNIQUE: Computed axial tomography of the head was obtained. IV contrast was not requested. All CT scans are performed using dose optimization technique as appropriate and may include automated exposure control or mA/KV adjustment according to patient size. FINDINGS: 5 centimeter low-density area right occipital lobe consistent with acute infarction. It co ntains small areas of increased density probably hemorrhagic conversion Low-density areas right cerebellum compatible with old infarction The ventricles are normal in caliber No extra-axial fluid collection is noted. Fluid within the sinuses/ mastoids is not seen. IMPRESSION: 5 centimeter acute right occipital lobe infarction. It contains a small amount of hemorr hagic conversion Dr Zapata of the emergency room notified 6:46 p.m. November 01, 2023
[2023-11-01 19:00] LABS: Specific Gravity < 1.005 (1.005-1.030); Sqamous Epithelial None Seen /HPF (None Seen); Urine Bacteria None Seen /HPF (<20); Urine Bilirubin NEGATIVE (Negative); Urine Blood Trace (Negative); Urine Clarity Clear (Clear); Urine Color Colorless (Yellow); Urine Culture Reflex Order NOT NEEDED; Urine Glucose NEGATIVE (Negative); Urine Ketones NEGATIVE (Negative); Urine Microscopic Reflex YN ORDER UMIC; Urine Nitrite NEGATIVE (Negative); Urine Protein NEGATIVE (Negative); Urine RBC <5 /HPF (None Seen); Urine Urobilinogen Normal (Normal); Urine WBC <5 /HPF (<5); Urine pH 5.5 (5.0-7.0)
--- NOTE | 2023-11-01 19:02 | EDPHYS ---
Physician Documentation [facility] Name: Rogerio Kate Age: 68 yrs Sex: Male : 1955 Arrival Date: 11/01/2023 Time: 16:57 Bed 7 Private MD: ED Physician Anand Zapata HPI: 10/31 17:24 This 68 yrs old Male presents to ER via EMS with complaints of Dizziness. tamara 17:24 The patient presents with dizziness, generalized weakness, lightheadedness, feeling off tamara balance. Onset: The symptoms/episode began/occurred 4 day(s) ago. Context: occurred while the patient was unk, usual. Modifying factors: The symptoms are alleviated by nothing, the symptoms are aggravated by changing position, walking. Associated signs and symptoms: The patient has no apparent associated signs or symptoms. Severity of symptoms: At their worst the symptoms were mild moderate in the emergency department the symptoms are unchanged. Patient's baseline: Neuro: alert and fully oriented. The patient has experienced similar episodes in the past, several times. Historical: - Allergies: 16:59 Ibuprofen; ld1 - Home Meds: 16:59 clopidogrel 75 mg Oral tab 1 tab once daily [Active]; ld1 - PMHx: 16:59 Cerebrovascular accident; Hypercholesterolemia; Vertigo; ld1 - Immunization history:: Adult Immunizations up to date. - Infectious Disease History:: Denies. - Social history:: Smoking status: Patient denies any tobacco usage or history of. Patient uses alcohol, on a daily basis. - Family history:: not pertinent. ROS: 17:24 Constitutional: Negative for fever, chills, and weight loss, Eyes: Negative for injury, tamara pain, redness, and discharge, ENT: Negative for injury, pain, and discharge, Neck: Negative for injury, pain, and swelling, Cardiovascular: Negative for chest pain, palpitations, and edema, Respiratory: Negative for shortness of breath, cough, wheezing, and pleuritic chest pain, Abdomen/GI: Negative for abdominal pain, nausea, vomiting, diarrhea, and constipation, Back: Negative for injury and pain, : Negative for injury, bleeding, discharge, and swelling, MS/Extremity: Negative for injury and deformity, Skin: Negative for injury, rash, and discoloration, Psych: Negative for depression, anxiety, suicide ideation, homicidal ideation, and hallucinations, Allergy/Immunology: Negative for hives, rash, and allergies, Endocrine: Negative for neck swelling, polydipsia, polyuria, polyphagia, and marked weight changes, Hematologic/Lymphatic: Negative for swollen nodes, abnormal bleeding, and unusual bruising, 17:24 Neuro: Positive for dizziness, Exam: 17:24 Constitutional: This is a well developed, well nourished patient who is awake, alert, tamara and in no acute distress. Head/Face: Normocephalic, atraumatic. Eyes: Pupils equal round and reactive to light, extra-ocular motions intact. Lids and lashes normal. Conjunctiva and sclera are non-icteric and not injected. Cornea within normal limits. Periorbital areas with no swelling, redness, or edema. ENT: Nares patent. No nasal discharge, no septal abnormalities noted. Tympanic membranes are normal and external auditory canals are clear. Oropharynx with no redness, swelling, or masses, exudates, or evidence of obstruction, uvula midline. Mucous membranes moist. Neck: Trachea midline, no thyromegaly or masses palpated, and no cervical lymphadenopathy. Supple, full range of motion without nuchal rigidity, or vertebral point tenderness. No Meningismus. Chest/axilla: Normal chest wall appearance and motion. Nontender with no deformity. No lesions are appreciated. Cardiovascular: Regular rate and rhythm with a normal S1 and S2. No gallops, murmurs, or rubs. Normal PMI, no JVD. No pulse deficits. Respiratory: Lungs have equal breath sounds bilaterally, clear to auscultation and percussion. No rales, rhonchi or wheezes noted. No increased work of breathing, no retractions or nasal flaring. Abdomen/GI: Soft, non-tender, with normal bowel sounds. No distension or tympany. No guarding or rebound. No evidence of tenderness throughout. Back: No spinal tenderness. No costovertebral tenderness. Full range of motion. Male : Normal genitalia with no discharge or lesions. Skin: Warm, dry with normal turgor. Normal color with no rashes, no lesions, and no evidence of cellulitis. MS/ Extremity: Pulses equal, no cyanosis. Neurovascular intact. Full, normal range of motion. Psych: Awake, alert, with orientation to person, place and time. Behavior, mood, and affect are within normal limits. 17:24 Neuro: Orientation: is normal, appropriate for stated age, no acute changes, Mentation: is normal, appropriate for stated age, no acute changes, Memory: is normal, appropriate for stated age, no acute changes, Cranial nerves: no acute changes, Cerebellar function: is grossly normal based on the patient's age, no acute changes, Motor: moves all fours, strength is normal, strength is 5/5 in all extremities, Sensation: appropriate no acute changes, Gait: not tested. seizure activity, is not displayed by the patient, Vital Signs: 16:58 BP 143 / 84; Pulse 82; Resp 18; Temp 98.2(TE); Pulse Ox 98% on R/A; Weight 90.72 kg; ld1 Height 6 ft. 0 in. ; Pain 0/10; 18:28 BP 177 / 9; Pulse 79; Resp 18; Pulse Ox 97% on R/A; ld1 19:30 BP 153 / 88; Pulse 80; Resp 16; Pulse Ox 97% on R/A; jb4 20:30 BP 142 / 89; Pulse 79; Resp 16; Pulse Ox 98% on R/A; jb4 16:58 Body Mass Index 27.12 (90.72 kg, 182.88 cm) ld1 16:58 Pain Scale: Adult ld1 NIH Stroke Scale Scores: 17:24 NIHSS Score: 0 tamara Carlos Coma Score: 19:58 Eye Response: spontaneous(4). Motor Response: obeys commands(6). Verbal Response: jb4 oriented(5). Total: 15. MDM: 16:59 Patient medically screened. tamara 17:29 Differential diagnosis: cardiac arrhythmia, CVA, generalized weakness, hypovolemia, tamara near-syncope, TIA, vertigo. Data reviewed: vital signs, nurses notes, lab test result(s), EKG, radiologic studies, CT scan, plain films. Consideration of Admission/Observation Escalation of care including admission/observation considered. I considered the following discharge prescriptions or medication management in the emergency department Medications were administered in the Emergency Department. See MAR. Independent interpretation of the following test(s) in the Emergency Department EKG: See my EKG interpretation above. Test considered but Not performed: MRI: no mri. Historians other than the Patient: EMS: ems well informed. Care significantly affected by the following chronic conditions: Hypertension, cva, high cholesterl. 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 Counseling: I had a detailed discussion with the patient and/or guardian regarding the historical points, exam findings, and any diagnostic results supporting the discharge/admit diagnosis, lab results, radiology results, the need for further work-up and treatment in the hospital. 10/31 17:04 Order name: Basic Metabolic Panel; Complete Time: 18:23 [facility] 10/31 17:04 Order name: CBC with Diff; Complete Time: 18:23 [facility] 10/31 17:04 Order name: LFT's; Complete Time: 18:23 [facility] 10/31 17:04 Order name: Magnesium; Complete Time: 18:23 [facility] 10/31 17:04 Order name: NT PRO-BNP; Complete Time: 18:23 [facility] 10/31 17:04 Order name: PT-INR; Complete Time: 18:23 [facility] 10/31 17:04 Order name: Troponin HS; Complete Time: 18:23 [facility] 10/31 17:04 Order name: Urinalysis w/ reflexes; Complete Time: 19:02 [facility] 10/31 17:04 Order name: XRAY Chest (1 view); Complete Time: 18:23 [facility] 10/31 17:04 Order name: CT Head Brain wo Cont; Complete Time: 18:58 [facility] 10/31 17:19 Order name: CT Neck Angio; Complete Time: 19:14 [facility] 10/31 17:29 Order name: Head angio; Complete Time: 19:14 [facility] 10/31 17:04 Order name: Cardiac monitoring; Complete Time: 17:16 [facility] 10/31 17:04 Order name: EKG - Nurse/Tech; Complete Time: 17:16 [facility] 10/31 17:04 Order name: IV Saline Lock; Complete Time: 17:26 [facility] 10/31 17:04 Order name: Labs collected and sent; Complete Time: 17:26 [facility] 10/31 17:04 Order name: O2 Per Protocol; Complete Time: 17:10 [facility] 10/31 17:04 Order name: O2 Sat Monitoring; Complete Time: 17:10 [facility] Administered Medications: 17:27 Drug: NS 0.9% IV 500 ml IV at bolus once Route: IV; Rate: bolus; Site: right ld1 antecubital; 17:27 Drug: Ondansetron IVP 4 mg IVP once; over 2 minutes Route: IVP; Site: right antecubital;ld1 17:27 Drug: foLIC Acid IVPB 1 mg IVPB once Route: IVPB; Site: right antecubital; ld1 18:28 Drug: NS 0.9% IV 1000 ml IV at 125 ml/hr continuous Route: IV; Rate: 125 ml/hr; Site: ld1 right antecubital; 19:27 Drug: Keppra IV 1000 mg IV at per protocol once Route: IV; Rate: per protocol; Site: jb4 right antecubital; Disposition Summary: 11/01/23 19:01 Transfer Ordered Notes: Transfer Location: [facility] tamara Reason: Higher level of care tamara Condition: Serious tamara Problem: new tamara Symptoms: are unchanged tamara Accepting Physician: leny neuroslh(11/01/23 21:23) jb4 Diagnosis - Ataxia, unspecified tamara - Cerebral infarction, unspecified - 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 Dysarthria (speech clarity - read or repeat words) - 0(Normal) 11. Extinction and Inattention (visual/tactile/auditory/spatial/personal) - 0(No abnormality) 1a. Level of Consciousness (LOC) - 0(Alert) 1b. Level of Consciousness (LOC) (Month \T\ Age) - 0(Both) 1c. LOC Commands (Open \T\ Closes Eyes/X Ray Examiner Of Aircraft) - 0(Both) 2. Best Gaze (Lateral Gaze Paresis) - 0(Normal) 3. Visual Field Loss - 0(No visual loss) 4. Facial Palsy - 0(Normal) 5a. Left Arm: Motor (10-second hold) - 0(No drift) 5b. Right Arm: Motor (10-second hold) - 0(No drift) 6a. Left Leg: Motor (5-second hold - always test supine) - 0(No drift) 6b. Right Leg: Motor (5-second hold - always test supine) - 0(No drift) 7. Limb Ataxia (finger/nose \T\ heel/guadarrama - test with eyes open) - 0(Absent) 8. Sensory Loss (pinprick arms/legs/face) - 0(Normal) 9. Best Language: Aphasia (description/naming/reading) - 0(No aphasia) Initials: tamara Signatures: Dispatcher [employer] EDAnand Adam MD MD cha Bryson, James, RN RN jb4 Martha Franklin RN RN ld1 Corrections: (The following items were deleted from the chart) 17:05 17:05 BASIC METABOLIC PANEL+C.LAB.BRZ ordered. EDMS EDMS 17:05 17:05 CBC+H.LAB.BRZ ordered. EDMS EDMS 17:05 17:05 HEPATIC FUNCTION+C.LAB.BRZ ordered. EDMS EDMS 17:05 17:05 MAGNESIUM+C.LAB.BRZ ordered. EDMS EDMS 17:05 17:05 PROBNP+C.LAB.BRZ ordered. EDMS EDMS 17:05 17:05 PROTIME (+INR)+COAG.LAB.BRZ ordered. EDMS EDMS 17:05 17:05 Troponin High Sensitivity+C.LAB.BRZ ordered. EDMS EDMS 17:05 17:05 Urinalysis+U.LAB.BRZ ordered. EDMS EDMS 17:05 17:05 Chest Single View+RAD.RAD.BRZ ordered. EDMS EDMS 17:05 17:05 Head Brain Wo Cont+CT.RAD.BRZ ordered. EDMS EDMS 21:23 19:01 to neuroslh tamara jb4
--- NOTE | 2023-11-01 19:02 | ER ---
Nurse's Notes [facility] Name: Rogerio Kate Age: 68 yrs Sex: Male : 1955 Arrival Date: 11/01/2023 Time: 16:57 Bed 7 Private MD: Diagnosis: Ataxia, unspecified;Cerebral infarction, unspecified-5 cm right occipital infarct with hemorrhagic conversion Presentation: 10/31 16:58 Chief complaint: EMS states: toned out to patient home for dizziness. Coronavirus ld1 screen: At this time, the client does not indicate any symptoms associated with coronavirus-19. Ebola Screen: No symptoms or risks identified at this time. Initial Sepsis Screen: Does the patient meet any 2 criteria? No. Patient's initial sepsis screen is negative. Does the patient have a suspected source of infection? No. Patient's initial sepsis screen is negative. Risk Assessment: Do you want to hurt yourself or someone else? Patient reports no desire to harm self or others. Onset of symptoms was November 01, 2023 at 16:59. 16:58 Method Of Arrival: EMS: [facility] ld1 16:58 Acuity: ODALIS 2 ld1 Triage Assessment: 16:59 General: Appears in no apparent distress. comfortable, Behavior is calm, cooperative, ld1 appropriate for age. Pain: Denies pain. EENT: No signs and/or symptoms were reported regarding the EENT system. Neuro: Level of Consciousness is awake, alert, obeys commands, Oriented to person, place, time, situation, Appropriate for age Reports dizziness. Cardiovascular: Capillary refill < 3 seconds Patient's skin is warm and dry. Rhythm is sinus rhythm. Respiratory: Airway is patent Respiratory effort is even, unlabored. GI: Abdomen is round non-distended. : No signs and/or symptoms were reported regarding the genitourinary system. Derm: No signs and/or symptoms reported regarding the dermatologic system. Musculoskeletal: No signs and/or symptoms reported regarding the musculoskeletal system. Historical: - Allergies: 16:59 Ibuprofen; ld1 - Home Meds: 16:59 clopidogrel 75 mg Oral tab 1 tab once daily [Active]; ld1 - PMHx: 16:59 Cerebrovascular accident; Hypercholesterolemia; Vertigo; ld1 - Immunization history:: Adult Immunizations up to date. - Infectious Disease History:: Denies. - Social history:: Smoking status: Patient denies any tobacco usage or history of. Patient uses alcohol, on a daily basis. - Family history:: not pertinent. Screenin:00 [facility] ED Fall Risk Assessment (Adult) History of falling in the last 3 months, ld1 including since admission No falls in past 3 months (0 pts) Confusion or Disorientation No (0 pts) Intoxicated or Sedated No (0 pts) Impaired Gait No (0 pts) Mobility Assist Device Used No (0 pt) Altered Elimination No (0 pt) Score/Fall Risk Level 0 - 2 = Low Risk Oriented to surroundings, Maintained a safe environment, Educated pt \T\ family on fall prevention, incl call for assistance when getting out of bed, Assessed \T\ reinforced patient's understanding of fall precautions, Provided non-skid footwear, Hourly rounding (assess needs \T\ fall precautionary measures) done, Used ambulatory aids as needed (educated on \T\ assisted with), Used gait belt as appropriate. Abuse screen: Denies threats or abuse. Denies injuries from another. Nutritional screening: No deficits noted. Tuberculosis screening: No symptoms or risk factors identified. Assessment: 17:00 Reassessment: See triage assessment. ld1 19:45 Reassessment: Patient appears in no apparent distress at this time. Patient and/or jb4 family updated on plan of care and expected duration. Pain level reassessed. Patient is alert, oriented x 3, equal unlabored respirations, skin warm/dry/pink. Droop noted to the left side of the face that is not new. 21:21 Reassessment: Patient appears in no apparent distress at this time. Patient and/or jb4 family updated on plan of care and expected duration. Pain level reassessed. Patient is alert, oriented x 3, equal unlabored respirations, skin warm/dry/pink. IV infusing without issue, no s/s of infiltration or phlebitis. Vital Signs: 16:58 BP 143 / 84; Pulse 82; Resp 18; Temp 98.2(TE); Pulse Ox 98% on R/A; Weight 90.72 kg; ld1 Height 6 ft. 0 in. ; Pain 0/10; 18:28 BP 177 / 9; Pulse 79; Resp 18; Pulse Ox 97% on R/A; ld1 19:30 BP 153 / 88; Pulse 80; Resp 16; Pulse Ox 97% on R/A; jb4 20:30 BP 142 / 89; Pulse 79; Resp 16; Pulse Ox 98% on R/A; jb4 16:58 Body Mass Index 27.12 (90.72 kg, 182.88 cm) ld1 16:58 Pain Scale: Adult ld1 Carlos Coma Score: 19:58 Eye Response: spontaneous(4). Motor Response: obeys commands(6). Verbal Response: jb4 oriented(5). Total: 15. NIH Stroke Scale Scores: 17:24 NIHSS Score: 0 [facility] ED Course: 16:57 Patient arrived in ED. ld1 16:59 Anand Zapata MD is Attending Physician. [facility] 16:59 Triage completed. ld1 16:59 Arm band placed on right wrist. ld1 17:00 Patient has correct armband on for positive identification. Placed in gown. Bed in low ld1 position. Call light in reach. Side rails up X2. satellite project site monitor on. Pulse ox on. NIBP on. Door closed. Noise minimized. Warm blanket given. 17:00 No provider procedures requiring assistance completed. ld1 17:15 Martha Franklin, RN is Primary Nurse. ld1 17:16 Missed attempt(s): 20 gauge in right antecubital area. oh1 17:25 Initial lab(s) drawn, by me, sent to lab. Inserted saline lock: 20 gauge in right upper zm arm, using aseptic technique. Blood collected. Flushed with 10 mL NS. 17:25 Basic Metabolic Panel Sent. zm 17:25 CBC with Diff Sent. zm 17:25 LFT's Sent. zm 17:25 Magnesium Sent. zm 17:25 NT PRO-BNP Sent. zm 17:25 PT-INR Sent. zm 17:26 Troponin HS Sent. zm 17:45 XRAY Chest (1 view) In Process Unspecified. EDMS 18:38 CT Head Brain wo Cont In Process Unspecified. EDMS 18:38 CT Neck Angio In Process Unspecified. EDMS 18:38 Head angio In Process Unspecified. EDMS 19:00 Initiated transfer with Rachelle at [facility]. rv1 20:[address] Woodson to [facility] [id number]. rv1 20:31 Deepika with [facility] gave 15-20 min ETA. rv1 20:45 Provided Education on: need for transfer.. jb4 20:45 Patient transferred, IV remains in place. jb4 Administered Medications: 17:27 Drug: NS 0.9% IV 500 ml IV at bolus once Route: IV; Rate: bolus; Site: right ld1 antecubital; 17:27 Drug: Ondansetron IVP 4 mg IVP once; over 2 minutes Route: IVP; Site: right antecubital;ld1 17:27 Drug: foLIC Acid IVPB 1 mg IVPB once Route: IVPB; Site: right antecubital; ld1 18:28 Drug: NS 0.9% IV 1000 ml IV at 125 ml/hr continuous Route: IV; Rate: 125 ml/hr; Site: ld1 right antecubital; 19:27 Drug: Keppra IV 1000 mg IV at per protocol once Route: IV; Rate: per protocol; Site: jb4 right antecubital; Medication: 20:30 VIS not applicable for this client. jb4 Outcome: 19:01 ER care complete, transfer ordered by MD. mcdonald 21:23 Transferred by ground EMS to [facility], Transfer form completed. jb4 X-rays sent w/ patient. 21:23 Condition: stable 21:23 Discharge instructions given to patient, Instructed on the need for transfer, Demonstrated understanding of instructions, 21:23 Patient left the ED. jb4 NIH Stroke Scale - NIH Stroke Score Date: 11/01/2023 Time: 17:24 Total Score = 0 10. Dysarthria (speech clarity - read or repeat words) - 0(Normal) 11. Extinction and Inattention (visual/tactile/auditory/spatial/personal) - 0(No abnormality) 1a. Level of Consciousness (LOC) - 0(Alert) 1b. Level of Consciousness (LOC) (Month \T\ Age) - 0(Both) 1c. LOC Commands (Open \T\ Closes Eyes/Director Instrumentation) - 0(Both) 2. Best Gaze (Lateral Gaze Paresis) - 0(Normal) 3. Visual Field Loss - 0(No visual loss) 4. Facial Palsy - 0(Normal) 5a. Left Arm: Motor (10-second hold) - 0(No drift) 5b. Right Arm: Motor (10-second hold) - 0(No drift) 6a. Left Leg: Motor (5-second hold - always test supine) - 0(No drift) 6b. Right Leg: Motor (5-second hold - always test supine) - 0(No drift) 7. Limb Ataxia (finger/nose \T\ heel/guadarrama - test with eyes open) - 0(Absent) 8. Sensory Loss (pinprick arms/legs/face) - 0(Normal) 9. Best Language: Aphasia (description/naming/reading) - 0(No aphasia) Initials: tamara Signatures: Dispatcher [employer] Anand Bruno MD MD cha Bryson, James RN RN jb4 Martha Franklin RN RN ld1 Sierra Iniguez Rebecca rv1 Emily Ely oh1
--- NOTE | 2023-11-01 19:09 | RAD REPORT ---
EXAM DESCRIPTION: CTHead angio11/01/2023 6:36 pm CLINICAL HISTORY: CVA/vertigo COMPARISON: 2021 TECHNIQUE: 100 cc Isovue [address] angiogram of the head was obtained. 3D MIPS reconstruction performed. All CT scans are performed using dose optimization technique as appropriate and may include automated exposure control or mA/KV adjustment according to patient size. FINDINGS: Mild narrowing basilar artery Anterior cerebral, middle cerebral posterior cerebral arteries bilaterally not demonstrate a signific ant stenosis Calcified plaque distal right internal carotid artery results in an approximately 55% stenosis. Mild to moderate calcified plaque distal left internal carotid artery An aneurysm is not seen No large vessel occlusion IMPRESSION: Moderate calcified plaque distal right internal carotid artery
--- NOTE | 2023-11-01 19:10 | RAD REPORT ---
EXAM DESCRIPTION: Anika Angio11/01/2023 6:36 pm CLINICAL HISTORY: CVA/vertigo COMPARISON: 2021 TECHNIQUE: 100 cc Isovue [address] angiogram of the neck was obtained. 3D MIPS reconstruction performed. All CT scans are performed using dose optimization technique as appropriate and may include automated exposure control or mA/KV adjustment according to patient size. FINDINGS: Visualized aortic arch and great vessels unremarkable Mild plaque common carotid, internal carotid and external carotid arteries bilaterally Left vertebral artery is small and poorly opacified. This is without significant change from prior ex am Mild plaque distal right vertebral artery No dissection is seen. No high-grade stenosis [place] Mild stenosis 0 to 49 % Moderate stenosis 50-69% Severe stenosis 70-99% IMPRESSION: Left vertebral artery is small and poorly opacified. This is without significant change from 2021. This could be the result of a chronic dissection or the artery being hypoplastic
[2023-11-01] MEDS ORDERED: NA CHLORIDE 0.9% 100 ML ONE (19:19)
[2023-11-01] MEDS ORDERED: LEVETIRACETAM 500 MG/5 ML VIAL IV ONE (19:19)
[2023-11-01 21:33] VITALS: TEMP 98.2
[2023-11-01 21:50] VITALS: BP 142/89; O2SAT 98
== END 2023-11-01 21:23 | disposition short-term general hospital (02) ==
LOC: ER 16:57
DX: I63.9 Cerebral infarction, unspecified (principal); I61.1 Nontraumatic intracerebral hemorrhage in hemisphere, cortical; R29.700 NIHSS score 0; Z86.73 Personal history of transient ischemic attack (TIA), and cerebral infarction without residual deficits; E78.00 Pure hypercholesterolemia, unspecified
CPT/HCPCS: 36415; 70450; 70496; 70498; 71045; 80048; 80076; 81001; 83735; 83880; 84484; 85025; 85610; 93005; J1953; J2405; J7030; J7040; Q9967